=== PATIENT | male | born 1960 | race Caucasian/White ===

== ENCOUNTER 2016-08-04 15:40 | Inpatient (IN) ==
--- NOTE | 2016-08-04 15:51 | Emergency Department Note ---
Disposition Clinical Impression: Urinary tract infection, Acute retention of urine, Sepsis, Diabetes, Prostatic hypertrophy, Kidney stones, Obesity, Hypokalemia, History of recent surgery, Hepatic steatosis Disposition: Admitted As Inpatient Referrals: Daniel Mahoney DO [Primary Care Provider] - Forms: ED Satisfaction Letter General Adult HPI - General Chief complaint: ED Urogenital-Male Stated complaint: difficulty urinating Time Seen by Provider: 08/04/16 15:50 Source: patient Limitations: no limitations - History of Present Illness HPI Narrative: 56-year-old male with a history of prostatic hypertrophy reports to the emergency department complaining of difficulty voiding. He has suprapubic discomfort. The patient had to have a Bianchi catheter placed remotely for prostate related urinary obstruction, he states it stayed in place for 18 days. He states his symptoms are exactly the same as before. The patient has no known renal failure. He is diabetic. He is currently not anticoagulated. He does take medicines for prostatic hypertrophy, he has no history of malignancy. There is no history of vomiting or diarrhea. No scrotal or genital swelling reported. The patient reports he may have had a fever, he states he measured his temperature 99.7. About 3 weeks ago he had a cardiac ablation. He denies chest pain or shortness of breath. There is no history of difficulty moving the arms or legs, no weakness or numbness in the legs, no bowel problems, no back pain. He has no history of back surgery and does not describe acute back pain. There is no history of sciatica. No trauma. No other complaints or concerns. Pain Scale: 9 - Related Data Allergies Allergy/AdvReac Type Severity Reaction Status Date / Time No Known Allergies Allergy Verified 08/04/16 15:45 All systems ED: reviewed and negative except as stated. Past Medical History - Past Medical History Medical history: Reports: diabetes, hypertension, other Psychiatric history: Reports: no psych history - Social History Smoking Status: Never smoker Smokeless Tobacco Status: No Alcohol use: Reports: none Drug use: Reports: none Physical Exam - General Limitations: no limitations General appearance: alert, in no apparent distress - Head Head exam: atraumatic, normocephalic, normal inspection - Eye Eye exam: Present: normal appearance, PERRL, EOMI - ENT ENT exam: normal exam, normal oropharynx, mucous membranes moist, TM's normal bilaterally, normal external ear exam - Neck Neck exam: Present: normal inspection, full ROM, trachea midline - Chest Chest inspection: Present: symmetric chest wall rise. Absent: tenderness - Respiratory Respiratory exam: Present: normal lung sounds bilaterally. Absent: respiratory distress, accessory muscle use, prolonged expiratory phase - Cardiovascular Cardiovascular exam: Present: regular rate, normal rhythm, normal heart sounds - Abdominal Exam Abdominal exam: Present: soft, tenderness, normal bowel sounds. Absent: distention, guarding, rebound, rigidity, pulsatile mass Abdominal tenderness: Present: suprapubic, mild - Rectal Exam Equal Opportunity Officer present during exam: Yes - Male exam: Present: normal inspection (Bianchi catheter in place. There is no redness or swelling in the genital area or perennial area, no evidence of Yannick's gangrene.), normal testicular lie. Absent: paraphimosis, penile swelling, lesions, induration, erythema, perineal induration, priapism, ulcerations, inguinal hernia, inguinal lymphadenopathy, testicular tenderness - Extremities Exam Extremities exam: Present: normal inspection, full ROM, normal capillary refill. Absent: tenderness, pedal edema, joint swelling, calf tenderness - Expanded Lower Extremity Exam Lower leg exam: Absent: Homans' sign Neurovascular/Tendon exam: Present: normal capillary refill. Absent: motor deficit, sensory deficit, tendon deficit, extremity cold to touch, pallor - Back Exam Back exam: Present: normal inspection, full ROM. Absent: tenderness, CVA tenderness (R), CVA tenderness (L), vertebral tenderness, straight leg raise (R) , straight leg raise (L) - Neurological Exam Neurological exam: Present: alert, oriented X3, CN II-XII intact. Absent: motor sensory deficit - Psychiatric Psychiatric exam: Present: normal affect, normal mood - Skin Skin exam: Present: warm, dry, intact, normal color. Absent: rash, cyanosis, diaphoresis, erythema, pallor, mottled Course Vital Signs Temperature 98.6 F 08/04/16 15:42 Pulse Rate 100 08/04/16 15:42 Respiratory Rate 16 08/04/16 15:42 Blood Pressure 160/83 08/04/16 15:42 O2 Sat by Pulse Oximetry 97 08/04/16 15:42 Temperature 98.6 F 08/04/16 15:42 Pulse Rate 86 08/04/16 18:03 Respiratory Rate 16 08/04/16 18:03 Blood Pressure 118/60 08/04/16 18:03 O2 Sat by Pulse Oximetry 95 08/04/16 18:03 Oxygen Delivery Oxygen Delivery Room Air Medical Decision Making - MDM Narrative Medical decision making narrative: The patient has a significant urinary tract infection with acute urinary retention probably secondary to prostatomegaly. He has non obstructive kidney stones on CT scan. The patient's heart rate was in the 100 range on arrival, he has a white blood cell count of 21,000 and meets Sirs and sepsis criteria based on abnormal urinalysis. A Bianchi catheter was placed. The patient did obtain significant relief. The patient is currently taking antibiotics and appears to have failed outpatient therapy. He is elderly, diabetic, had recent surgery. Based on the patient's comorbidities including age, diabetes, acute retention kidney stones, and UTI with failed outpatient therapy, and meeting sepsis criteria, I thought it would be appropriate to admit the patient to the hospital. I discussed the case with the hospitalist APC on-call who has accepted the patient to their care. - Lab Data Lab results reviewed: Yes I reviewed the patient's lab results. Result diagrams: 08/04/16 16:30 08/04/16 16:30 Lab Results 08/04/16 08/04/16 08/04/16 Range/Units 16:30 16:30 16:50 WBC 21.0 H (4.3-11.1) K/mcL RBC 5.07 (4.19-5.50) M/mcL Hgb 13.8 (12.9-16.9) g/dL Hct 40.6 (37.5-50.1) % MCV 80.1 L (83.0-100.0) fL MCH 27.2 L (28.0-33.3) pg MCHC 34.0 (31.6-35.5) g/dL RDW 14.0 (11.5-14.5) % Plt Count 309 (140-400) K/mcL MPV 8.6 L (9.4-12.4) fL Immature Gran % 0.6 (0-4) % Seg Neutrophils % 87.0 % Lymphocytes % 2.6 % Monocytes % 9.5 % Eosinophils % 0.0 % Basophils % 0.3 % Neutrophils # 18.3 H (1.6-8.9) K/mcL Lymphocytes # 0.5 L (0.6-4.6) K/mcL Monocytes # 2.0 H (0.0-1.3) K/mcL Eosinophils # 0.0 (0.0-0.6) K/mcL Basophils # 0.1 (0.0-0.2) K/mcL Immature Plt Fraction 1.5 (1.1-6.1) % Sodium 133 L (136-145) mEq/L Potassium 3.3 L (3.5-4.5) mEq/L Chloride 94 L (98-109) mEq/L Carbon Dioxide 26 (19-29) mEq/L BUN 13 (8-26) mg/dL Creatinine 1.10 (0.72-1.25) mg/dL Est GFR ( Amer) > 60 (> 60) Est GFR (Non-Af Amer) > 60 (> 60) BUN/Creatinine Ratio 12 (6-26) Glucose 198 H (70-99) mg/dL Calculated Osmolality 282 (280-300) Lactic Acid (0.5-2.2) mmol/L Calcium 8.9 (8.6-10.8) mg/dL Total Bilirubin (0.2-1.2) mg/dL Direct Bilirubin (0.0-0.5) mg/dL Indirect Bilirubin (0.0-1.2) mg/dL AST (5-34) Units/L ALT (0-55) Units/L Alkaline Phosphatase (38-126) Units/L C-Reactive Protein 115 H (Less than 5) mg/L Serum Total Protein (6.0-8.3) g/dL Albumin (3.5-5.0) g/dL Globulin (2.4-3.5) g/dL Albumin/Globulin Ratio (1.1-2.2) Urine Color [place] A (Yellow) Urine Clarity Cloudy A (Clear) Urine pH 5.5 (5.0-8.0) pH Units Ur Specific [place] 1.021 (1.010-1.025) Urine Protein 100 H (Neg-Trace) mg/dL Urine Glucose (UA) Normal (Normal) mg/dL Urine Ketones Trace H (Negative) mg/dL Urine Blood Large H (Negative) Urine Nitrite Positive A (Negative) Urine Bilirubin Small H (Negative) Urine Urobilinogen Normal (Normal) mg/dL Ur Leukocyte Esterase Large H (Negative) Urine Microscopic RBC TNTC H (0-3) per hpf Urine Microscopic WBC TNTC H (0-3) per hpf Ur Squamous Epith Cells Many H (None-Few) per lpf Urine Bacteria None Seen (None-Few) per hpf Hyaline Casts None Seen (None-Few) per lpf Ur Culture Indicated? YES A (NO) 08/04/16 08/04/16 Range/Units 17:54 17:54 WBC (4.3-11.1) K/mcL RBC (4.19-5.50) M/mcL Hgb (12.9-16.9) g/dL Hct (37.5-50.1) % MCV (83.0-100.0) fL MCH (28.0-33.3) pg MCHC (31.6-35.5) g/dL RDW (11.5-14.5) % Plt Count (140-400) K/mcL MPV (9.4-12.4) fL Immature Gran % (0-4) % Seg Neutrophils % % Lymphocytes % % Monocytes % % Eosinophils % % Basophils % % Neutrophils # (1.6-8.9) K/mcL Lymphocytes # (0.6-4.6) K/mcL Monocytes # (0.0-1.3) K/mcL Eosinophils # (0.0-0.6) K/mcL Basophils # (0.0-0.2) K/mcL Immature Plt Fraction (1.1-6.1) % Sodium (136-145) mEq/L Potassium (3.5-4.5) mEq/L Chloride (98-109) mEq/L Carbon Dioxide (19-29) mEq/L BUN (8-26) mg/dL Creatinine (0.72-1.25) mg/dL Est GFR ( Amer) (> 60) Est GFR (Non-Af Amer) (> 60) BUN/Creatinine Ratio (6-26) Glucose (70-99) mg/dL Calculated Osmolality (280-300) Lactic Acid 1.6 (0.5-2.2) mmol/L Calcium (8.6-10.8) mg/dL Total Bilirubin 1.2 (0.2-1.2) mg/dL Direct Bilirubin 0.5 (0.0-0.5) mg/dL Indirect Bilirubin 0.7 (0.0-1.2) mg/dL AST 12 (5-34) Units/L ALT 20 (0-55) Units/L Alkaline Phosphatase 73 (38-126) Units/L C-Reactive Protein (Less than 5) mg/L Serum Total Protein 7.7 (6.0-8.3) g/dL Albumin 3.4 L (3.5-5.0) g/dL Globulin 4.3 H (2.4-3.5) g/dL Albumin/Globulin Ratio 0.8 L (1.1-2.2) Urine Color (Yellow) Urine Clarity (Clear) Urine pH (5.0-8.0) pH Units Ur Specific [place] (1.010-1.025) Urine Protein (Neg-Trace) mg/dL Urine Glucose (UA) (Normal) mg/dL Urine Ketones (Negative) mg/dL Urine Blood (Negative) Urine Nitrite (Negative) Urine Bilirubin (Negative) Urine Urobilinogen (Normal) mg/dL Ur Leukocyte Esterase (Negative) Urine Microscopic RBC (0-3) per hpf Urine Microscopic WBC (0-3) per hpf Ur Squamous Epith Cells (None-Few) per lpf Urine Bacteria (None-Few) per hpf Hyaline Casts (None-Few) per lpf Ur Culture Indicated? (NO) - Radiology Data Radiology results reviewed: Yes I reviewed the patient's radiology results.
[2016-08-04 16:40] LABS: Basophils # 0.1 K/mcL (0.0-0.2); Basophils % 0.3 %; Hematocrit 40.6 % (37.5-50.1); Hemoglobin 13.8 g/dL (12.9-16.9); Immature Granulocytes % 0.6 % (0-4); Immature Platelets 1.5 % (1.1-6.1); Lymphocytes # 0.5 K/mcL (0.6-4.6); Lymphocytes % 2.6 %; Mean Corpuscular Hemoglobin 27.2 pg (28.0-33.3); Mean Corpuscular Volume 80.1 fL (83.0-100.0); Mean Platelet Volume 8.6 fL (9.4-12.4); Monocytes % 9.5 %; Neutrophils # 18.3 K/mcL (1.6-8.9); Platelet Count 309 K/mcL (140-400); Red Blood Count 5.07 M/mcL (4.19-5.50)
[2016-08-04 16:52] LABS: BUN/Creatinine Ratio 12 (6-26); Blood Urea Nitrogen 13 mg/dL (8-26); C-Reactive Protein 115 mg/L (Less than 5); Calcium 8.9 mg/dL (8.6-10.8); Carbon Dioxide 26 mEq/L (19-29); Chloride 94 mEq/L (98-109); Glucose 198 mg/dL (70-99); Osmolality,Calculated 282 (280-300); Potassium 3.3 mEq/L (3.5-4.5); Sodium 133 mEq/L (136-145); eGFR For African Americans > 60 (> 60); eGFR For Non-African Americans > 60 (> 60)
[2016-08-04] MEDS ORDERED: 0.9 % Sodium Chloride 1,000 ML IVC ONE ×2 (17:04→18:02)
[2016-08-04 17:08] LABS: Bilirubin,Urine Small (Negative); Blood,Urine Large (Negative); Clarity,Urine Cloudy (Clear); Color,Urine Orange (Yellow); Glucose,Urine (UA) Normal (Normal); Ketones,Urine Trace mg/dL (Negative); Leukocyte Esterase,Urine Large (Negative); Nitrite,Urine Positive (Negative); PH,Urine 5.5 pH Units (5.0-8.0); Protein,Urine 100 mg/dL (Neg-Trace); Specific Gravity,Urine 1.021 (1.010-1.025); Urobilinogen,Urine Normal (Normal)
[2016-08-04 17:10] LABS: Bacteria,Urine None Seen per hpf (None-Few); Hyaline Casts,Urine None Seen per lpf (None-Few); RBC,Urine TNTC per hpf (0-3); Squamous Epithelial Cell,Urine Many per lpf (None-Few); WBC,Urine TNTC per hpf (0-3)
[2016-08-04 18:15] LABS: Albumin 3.4 g/dL (3.5-5.0); Albumin/Globulin Ratio 0.8 (1.1-2.2); Bilirubin,Direct 0.5 mg/dL (0.0-0.5); Bilirubin,Indirect 0.7 mg/dL (0.0-1.2); Bilirubin,Total 1.2 mg/dL (0.2-1.2); Globulin 4.3 g/dL (2.4-3.5); Total Protein 7.7 g/dL (6.0-8.3)
[2016-08-04] MEDS ORDERED: *HR* OxyCODONE/APAP 5/325 TABLET PO ONE (19:08)
--- NOTE | 2016-08-04 21:21 | Internal Med History&Physical ---
<Pako Owusujared Verma - Last Filed: 08/04/16 21:58> Date of Encounter: 08/04/16 Time of Encounter: 21:19 Assessment and Plan (1) Sepsis Current visit: Yes Status: Acute with tachycardia, WBC 21K. Secondary to UTI. Lactic acid normal. HR improved with IV fluids in the ED. Hemodynamically stable; does not appear acute or toxic. Cont iV fluids, increase Rocephin to 2 gm daily. Blood and urine cultures pending. Qualifiers: Qualified Code(s): A41.9 - Sepsis, unspecified organism (2) Urinary tract infection Current visit: Yes Status: Acute UA with large leuk esterase, pyuira and nitrites. Recently failed outpatient ATB (bactrim). Suspect secondary to urinary retention. Cont IV rocephin for now. Follow urine. Narrow ATB as culture finalizes Qualifiers: Qualified Code(s): N39.0 - Urinary tract infection, site not specified (3) BPH (benign prostatic hyperplasia) Current visit: Yes Status: Acute per hx. Presented with inability to void and urinary retention. Quiros placed in ED with >1L removed. ABT CT with moderate prostatomegaly and bilateral non- obstructing renal calculi. Cont home tamulosin and finasteride. Once sepsis resolved attempt voiding trial; if he retains then consult Urology. Otherwise will need outpatient Urology follow-up Qualifiers: Qualified Code(s): N40.0 - Benign prostatic hyperplasia without lower urinary tract symptoms (4) Hypertension Current visit: Yes Status: Acute per hx. BP controlled in ED. Resume BP medications. Monitor BP and titrate PRN Qualifiers: Qualified Code(s): I10 - Essential (primary) hypertension (5) Atrial fibrillation Current visit: Yes Status: Acute per hx with recent RFA. EKG with ST on arrival. HR improved with IV fluids. Cont home BB, eliquis Qualifiers: Qualified Code(s): I48.0 - Paroxysmal atrial fibrillation (6) Diabetes Current visit: Yes Status: Acute per hx. Control unknown. Hold home oral hypoglycemics. SSI while inpatient. 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 Travis is a 56 year old male HTN, DM, BPH and a-fib on eliquis who presented to [facility] on 08/04/2016 [facility] complaints of difficulty voiding and dysuria. He was found to be in sepsis and was admitted for IV ATB. Information obtained from chart review and patient report. Patient says he went to Urgent care yesterday and was give ATB for UTI. Says urinary stream became weaker and weaker until he was not able to void. Says he has been taking BPH medications as prescribed. No CP, no SOB, no ABD pain, no N/V/D Past Med Surg Social Fam HX - Past Medical History Medical history: diabetes, hypertension, other Psychiatric history: no psych history - Past Surgical History Surgical History: non-contributory - Social History Smoking Status: Never smoker Smokeless Tobacco Status: No Alcohol use: none Drug use: none - Family History Sister Living Status: Cause of : sepsis Internal Medicine - H&P: Meds Alpha Lipoic Acid 300 mg PO DAILY 08/04/16 [History] Amlodipine [Norvasc] 5 mg PO DAILY 08/04/16 [History] Apixaban [Eliquis] 5 mg PO BID 08/04/16 [History] Ascorbate Calcium [Vitamin C] 500 mg PO DAILY 08/04/16 [History] Cinnamon Bark [Cinnamon] 2,000 mg PO BID 08/04/16 [History] Finasteride [Proscar] 5 mg PO QPM 08/04/16 [History] Fluticasone Propionate Nasal [Flonase] 50 mcg NS HS 08/04/16 [History] Ginkgo Biloba 120 mg PO DAILY 08/04/16 [History] Hydrochlorothiazide 25 mg PO DAILY 08/04/16 [History] L. Acidophilus/Pectin, [place] [Acidophilus Probiotic Capsule] 1 each PO QAM [History] Loratadine [Claritin] 10 mg PO QAM 08/04/16 [History] Losartan Potassium [Cozaar] 100 mg PO DAILY 08/04/16 [History] Metformin HCl [Glucophage] 1,000 mg PO BID 08/04/16 [History] Metoprolol [Lopressor] 25 mg PO BID 08/04/16 [History] Montelukast [Singulair] 10 mg PO HS 08/04/16 [History] [place]-3/Dha/Epa/Fish Oil [Fish Oil 1,000 mg Softgel] 1,000 mg PO BID 08/04/16 [ History] SitaGLIPtin [Januvia] 100 mg PO DAILY 08/04/16 [History] Tamsulosin [Flomax] 0.4 mg PO QPM 08/04/16 [History] Ubidecarenone [Co Q-10] 100 mg PO DAILY 08/04/16 [History] Allergies Banana Adverse Reaction (Verified 08/04/16 20:14) See Comments eyes and nose swell, itchy mouth. All Systems PM: A 10-system review of systems was performed and is negative for pertinent findings except as documented above in the HPI. - Constitutional Constitutional: no chills, no fever(s), no night sweats - EENT Eyes: no change in vision, no discharge, no pain, no photophobia Ears: no ear discharge, no ear pain, no tinnitus Nose, mouth and throat: no dysphagia, no nasal discharge, no neck pain, no sore throat - Cardiovascular Cardiovascular ROS IM: no chest pain, no diaphoresis, no dyspnea, no lightheadedness, no palpitations, no syncope - Respiratory Respiratory: no cough, no dyspnea, no wheezing, no excessive phlegm production - Gastrointestinal Gastrointestinal: no abdominal pain, no diarrhea, no hematemesis, no hematochezia, no melena, no nausea, no vomiting - Genitourinary Genitourinary ROS male: difficulty urinating, dysuria - Musculoskeletal Musculoskeletal ROS IM: no numbness, no tingling - Integumentary Integumentary IM: no rash, no unusual bruising - Neurological Neurological ROS: no confusion, no convulsions, no focal weakness, no numbness, no tingling, no tremor(s) - Hematologic/Lymphatic Hematologic/Lymphatic: no easy bruising - Constitutional Vitals: Temp Pulse Resp BP Pulse Ox 98.6 F 100 16 119/68 99 08/04/16 15:42 08/04/16 20:37 08/04/16 20:37 08/04/16 20:37 08/04/16 20:37 - Head Head exam: Present: atraumatic, normocephalic - Eye Eye exam: Present: PERRL, conjuntiva pink, sclera anicteric Pupils: Present: PERRL - Neck Neck exam general surgery: Present: supple, trachea midline. Absent: lymphadenopathy - Respiratory Respiratory exam: Present: CTAB. Absent: accessory muscle use, rales, rhonchi, wheezes - Cardiovascular Cardiovascular exam: Present: RRR, +S1, +S2. Absent: diastolic murmur, gallop, rubs, systolic murmur - GI/Abdominal GI/Abdominal exam: Present: normal bowel sounds, soft, no peritoneal signs. Absent: distended, tenderness Additional comments: obese - Additional comments: + quiros with dark yellow urine - Extremities Exam Extremities exam: Present: warm, radial pulses palpable and symetrical. Absent : calf tenderness, cyanotic, pedal edema - Neurological Exam Neurological exam: Present: CN II-XII intact, oriented X3, no focal deficits. Absent: pronater drift, facial droop, speech deficit - Skin Skin exam: Present: dry, intact Internal Med - H&P Results - Labs CBC & Chem 7: 08/04/16 16:30 08/04/16 16:30 Labs: Short CBC 08/04/16 Range/Units 16:30 WBC 21.0 H (4.3-11.1) K/mcL Hgb 13.8 (12.9-16.9) g/dL Hct 40.6 (37.5-50.1) % Plt Count 309 (140-400) K/mcL Neutrophils # 18.3 H (1.6-8.9) K/mcL BMP 08/04/16 16:30 Sodium 133 L Potassium 3.3 L Chloride 94 L Carbon Dioxide 26 BUN 13 Creatinine 1.10 Glucose 198 H Calcium 8.9 Liver Function 08/04/16 Range/Units 17:54 Total Bilirubin 1.2 (0.2-1.2) mg/dL Direct Bilirubin 0.5 (0.0-0.5) mg/dL AST 12 (5-34) Units/L ALT 20 (0-55) Units/L Alkaline Phosphatase 73 (38-126) Units/L Albumin 3.4 L (3.5-5.0) g/dL Urine 08/04/16 Range/Units 16:50 Urine Color [place] A (Yellow) Urine Clarity Cloudy A (Clear) Urine pH 5.5 (5.0-8.0) pH Units Ur Specific [place] 1.021 (1.010-1.025) Urine Protein 100 H (Neg-Trace) mg/dL Urine Glucose (UA) Normal (Normal) mg/dL - Impressions ITS Impressions Chest X-Ray 08/04/16 17:02 IMPRESSION: The heart, mediastinum and pulmonary vascularity are normal. Lungs are well-expanded and clear. No skeletal abnormalities are present in the chest. FINDINGS: No significant findings in the chest. D/ / Gideon Lee MD / Gideon Lee MD Interpreting Provider: Gideon Lee MD Abdomen/Pelvis CT 08/04/16 17:04 IMPRESSION: Despite urinary bladder decompression via the Quirso catheter, urinary bladder wall thickening is suspected with mild perivesical fat stranding. Findings may be related to infection and/or hypertrophy from outlet obstruction. Moderate prostatomegaly. Bilateral nonobstructing small renal calculi. Diffuse fatty infiltration of the liver. D/ / Jerardo Davison MD / Jerardo Davison MD Interpreting Provider: Jerardo Davison MD <Rosales De La Cruz - Last Filed: 08/04/16 22:26> Date of Encounter: 08/04/16 Internal Medicine - H&P: HPI History of present illness: Mr. Travis is a 56 year old male Past Med Surg Social Fam HX - Past Surgical History Surgical History: other (surgery for renal stones) All Systems PM: A 10-system review of systems was performed and is negative for pertinent findings except as documented above in the HPI. - Constitutional Vitals: Temp Pulse Resp BP Pulse Ox 98.6 F 100 18 125/69 99 08/04/16 15:42 08/04/16 20:37 08/04/16 21:15 08/04/16 21:15 08/04/16 20:37 Internal Med - H&P Results - Labs CBC & Chem 7: 08/04/16 16:30 08/04/16 16:30 - Diagnostic Studies Chest x-ray Status: image reviewed by me CT scan - abdomen Status: image reviewed by me - Attending Attestation I personally interviewed and examined this patient and my medical decision- making was reviewed with the Advanced Practice Nurse. I agree with the documented findings, disposition and treatment plan as described. Patient with a history of BPH on medications and a prior acute urinary retention about 3 years ago comes in with a second episode associated with sepsis following a UTI. He was seen last night by an AUDIT INTERN and started on Bactrim for UTI based on his symptoms but his symptoms worsened overnight so he came in to the ER today. He was lost to urology followup after his first episode. He has been advised to followup with urology for both his BPH and renal stones-had prior surgery for renal stones-upon discharge. Anticipate 48 hours LOS.
[2016-08-04] MEDS ORDERED: *HR* Dextrose 50 % in Water (Syg) 50 ML SYRINGE IVP PRN (21:27)
[2016-08-04] MEDS ORDERED: Dextrose Gel 15 GM PO PRN ×2 (21:27)
[2016-08-04] MEDS ORDERED: D5% in Water 1,000 ML IVC PRN (21:27)
[2016-08-04] MEDS: 0.9 % Sodium Chloride 1,000 ML IVC SCH (23:12)
[2016-08-04] MEDS: Finasteride 5 MG TABLET PO SCH (23:57)
[2016-08-04] MEDS: APIXABAN 5 MG TABLET PO SCH (23:58)
[2016-08-05] MEDS ORDERED: Ondansetron 4 MG/2 ML VIAL IVP PRN (03:58)
[2016-08-05 04:09] LABS: Basophils % 0.2 %; Hematocrit 35.5 % (37.5-50.1); Immature Granulocytes % 1.4 % (0-4); Immature Platelets 1.7 % (1.1-6.1); Lymphocytes # 1.1 K/mcL (0.6-4.6); Lymphocytes % 4.9 %; Mean Corpuscular HGB Conc 34.1 g/dL (31.6-35.5); Mean Corpuscular Hemoglobin 27.4 pg (28.0-33.3); Mean Corpuscular Volume 80.5 fL (83.0-100.0); Mean Platelet Volume 9.3 fL (9.4-12.4); Monocytes # 2.2 K/mcL (0.0-1.3); Monocytes % 9.8 %; Neutrophils # 18.4 K/mcL (1.6-8.9); Platelet Count 288 K/mcL (140-400); Red Blood Count 4.41 M/mcL (4.19-5.50); Red Cell Distribution Width 14.2 % (11.5-14.5); Segmented Neutrophils % 83.7 %
[2016-08-05 04:16] LABS: Hemoglobin 12.1 g/dL (12.9-16.9)
[2016-08-05 04:29] LABS: Alanine Aminotransferase 16 Units/L (0-55); Albumin 2.9 g/dL (3.5-5.0); Albumin/Globulin Ratio 0.7 (1.1-2.2); Alkaline Phosphatase 77 Units/L (38-126); Aspartate Amino Transferase 9 Units/L (5-34); BUN/Creatinine Ratio 11 (6-26); Bilirubin,Total 0.9 mg/dL (0.2-1.2); Blood Urea Nitrogen 11 mg/dL (8-26); Calcium 8.6 mg/dL (8.6-10.8); Carbon Dioxide 29 mEq/L (19-29); Chloride 97 mEq/L (98-109); Globulin 4.1 g/dL (2.4-3.5); Glucose 182 mg/dL (70-99); Osmolality,Calculated 280 (280-300); Potassium 3.2 mEq/L (3.5-4.5); Sodium 133 mEq/L (136-145); eGFR For African Americans > 60 (> 60); eGFR For Non-African Americans > 60 (> 60)
[2016-08-05] MEDS: Insulin LISPRO 300 UNITS/3 ML VIAL SQ SCH ×4 (08:02→20:34)
[2016-08-05] MEDS: hydroCHLOROthiazide 25 MG TABLET PO SCH (08:03)
[2016-08-05] MEDS: APIXABAN 5 MG TABLET PO SCH ×2 (08:03→20:34)
[2016-08-05] MEDS: amLODIPine 5 MG TABLET PO SCH (08:04)
[2016-08-05] MEDS ORDERED: APIXABAN 5 MG TABLET PO SCH (09:00)
--- NOTE | 2016-08-05 10:31 | Internal Med Progress Note ---
Date of Encounter: 08/05/16 Time of Encounter: 10:28 - Assessment and plan (1) Urinary tract infection Current Visit: Yes Status: Acute Assessment and plan: started on rocephin cultures pending Qualifiers: Urinary tract infection type: acute cystitis Hematuria presence: without hematuria Qualified Code(s): N30.00 - Acute cystitis without hematuria (2) Sepsis Current Visit: Yes Status: Acute Assessment and plan: sepsis from uti cultures pending results Qualifiers: Sepsis type: sepsis due to unspecified organism Qualified Code(s): A41.9 - Sepsis, unspecified organism (3) Diabetes Current Visit: Yes Status: Chronic Assessment and plan: on sliding scale and home meds Qualifiers: Diabetes mellitus type: type 2 Diabetes mellitus complication status: with unspecified complications 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 insulin use: unspecified senior living insulin use status Qualified Code(s): E11.8 - Type 2 diabetes mellitus with unspecified complications (4) Prostatic hypertrophy Current Visit: Yes Status: Chronic Assessment and plan: complicated bph with urinary retension and uti (5) Obesity Current Visit: Yes Status: Chronic Assessment and plan: chronic Qualifiers: Obesity type: due to excess calories Obesity severity: morbid Qualified Code(s): E66.01 - Morbid (severe) obesity due to excess calories (6) BPH (benign prostatic hyperplasia) Current Visit: Yes Status: Acute Assessment and plan: urology consulted Qualifiers: Prostatic enlargement morphology: unspecified morphology Lower urinary tract symptom presence: presence of symptoms unspecified Qualified Code(s): N40.0 - Benign prostatic hyperplasia without lower urinary tract symptoms - Subjective Interval history: Patient with history of morbid obesity, hypertension, diabetes, atrial fibrillation underwent ablation about 3 weeks ago now in sinus rhythm patient was admitted due to difficulty voiding and dysuria found to have UTI and sepsis . white count was at 21,000 with tachycardia he is on IV Rocephin Today denies any fevers or chills consult urology for urinary retention also beeing a male with complicated UTI . apparently he has history of BPH - Constitutional Vitals: Temp Pulse Resp BP Pulse Ox 98.8 F 67 20 113/72 95 08/05/16 07:17 08/05/16 07:17 08/05/16 07:17 08/05/16 07:17 08/05/16 07:17 - Head Head exam: Present: atraumatic, normocephalic - Eye Eye exam: Present: PERRL, conjuntiva pink, sclera anicteric Pupils: Present: PERRL - Neck Neck exam general surgery: Present: supple, trachea midline. Absent: lymphadenopathy - Respiratory Respiratory exam: Present: CTAB. Absent: accessory muscle use, rales, rhonchi, wheezes - Cardiovascular Cardiovascular exam: Present: RRR, +S1, +S2. Absent: diastolic murmur, gallop, rubs, systolic murmur - GI/Abdominal GI/Abdominal exam: Present: normal bowel sounds, soft, no peritoneal signs. Absent: distended, tenderness - Extremities Exam Extremities exam: Present: warm, radial pulses palpable and symetrical. Absent : calf tenderness, cyanotic, pedal edema Internal Medicine: Result - Labs CBC & Chem 7: 08/05/16 03:35 08/05/16 03:35 Labs: Short CBC 08/05/16 Range/Units 03:35 WBC 22.0 H (4.3-11.1) K/mcL Hgb 12.1 L D (12.9-16.9) g/dL Hct 35.5 L (37.5-50.1) % Plt Count 288 (140-400) K/mcL Neutrophils # 18.4 H (1.6-8.9) K/mcL BMP 08/05/16 03:35 Sodium 133 L Potassium 3.2 L Chloride 97 L Carbon Dioxide 29 BUN 11 Creatinine 0.96 Glucose 182 H Calcium 8.6 Liver Function 08/05/16 Range/Units 03:35 Total Bilirubin 0.9 (0.2-1.2) mg/dL AST 9 (5-34) Units/L ALT 16 (0-55) Units/L Alkaline Phosphatase 77 (38-126) Units/L Albumin 2.9 L (3.5-5.0) g/dL Consult Discharge Plan - Plan Referrals: Daniel Mahoney DO [Primary Care Provider] -
[2016-08-05] MEDS: 0.9 % Sodium Chloride 1,000 ML IVC SCH (12:01)
--- NOTE | 2016-08-05 12:09 | Urology - Consult Note ---
Date of Encounter: 08/05/16 Time of Encounter: 12:07 - Assessment and Plan (1) Acute retention of urine Current Visit: Yes Status: Acute Assessment and plan: 56-year-old man with a history of acute urinary retention and a urinary tract infection. Please continue the Bianchi catheter for 1 week. We can consider a voiding trial in one week. He is currently taking combination therapy with both finasteride and tamsulosin. With this urinary tract infection and 2 episodes of retention, this typically indicates need for bladder outlet surgery such as a TURP. I discussed surgical treatment. This is not an emergency at this time, but he may want to consider definitive surgery for his BPH to minimize his risk of infection in the future. (2) Urinary tract infection Current Visit: Yes Status: Acute Assessment and plan: We will await the results of his urine and blood cultures. Continue Rocephin. Qualifiers: Urinary tract infection type: acute cystitis Hematuria presence: without hematuria Qualified Code(s): N30.00 - Acute cystitis without hematuria (3) Prostatic hypertrophy Current Visit: Yes Status: Chronic Assessment and plan: Continue finasteride and tamsulosin. Urology CN:HPI Consult date: 08/05/16 Reason for consult Urology: Other (uti and urinary retention) History of present illness: 56-year-old man presents with concern for a urinary tract infection and urinary retention. He had some dysuria and was seen at a local urgent care. He was started on antibiotic. A day later he began to have more difficulty with voiding. He came to the emergency department. They placed a catheter. They noted he had a leukocytosis. He was admitted for a urinary tract infection. He reports a history of nephrolithiasis. A CT scan was performed which showed bilateral stones, but no evidence of obstruction. He reports having a history of urinary retention. He does take finasteride and tamsulosin. Past Med Surg Social Fam HX - Past Medical History Medical history: diabetes, hypertension, other Psychiatric history: no psych history - Past Surgical History Surgical History: appendectomy, other - Social History Smoking Status: Never smoker Smokeless Tobacco Status: No Alcohol use: none Drug use: none - Family History Sister Living Status: Cause of : sepsis Mother Living Status: Still Living Hx Family Cardiac Disorders: Yes (Afib, mitral valve prolapse) Hx Family Respiratory Disorders: Yes (COPD, Emphysema) Hx Family Cancer: Yes (Breast Cancer) Hx Family GI Disorders: No Hx Family Genitourinary Disorders: (Bladder repair) Hx Family Endocrine Disorder: Yes (DM) Hx Family Musculoskeletal Disorders: No Hx Family Neuromuscular Disorders: No Hx Family Neurologic Disorders: No Hx Family HEENT Disorders: No Hx Family Autoimmune Disorders: No Hx Family Reproductive Disorders: No Hx Family Psychosocial Disorders: Yes (Depression) Hx Family Medical Disorders: No Medications and Allergies Alpha Lipoic Acid 300 mg PO DAILY 08/04/16 [History] Amlodipine [Norvasc] 5 mg PO DAILY 08/04/16 [History] Apixaban [Eliquis] 5 mg PO BID 08/04/16 [History] Ascorbate Calcium [Vitamin C] 500 mg PO DAILY 08/04/16 [History] Cinnamon Bark [Cinnamon] 2,000 mg PO BID 08/04/16 [History] Finasteride [Proscar] 5 mg PO QPM 08/04/16 [History] Fluticasone Propionate Nasal [Flonase] 50 mcg NS HS 08/04/16 [History] Ginkgo Biloba 120 mg PO DAILY 08/04/16 [History] Hydrochlorothiazide 25 mg PO DAILY 08/04/16 [History] L. Acidophilus/Pectin, [place] [Acidophilus Probiotic Capsule] 1 each PO QAM [History] Loratadine [Claritin] 10 mg PO QAM 08/04/16 [History] Losartan Potassium [Cozaar] 100 mg PO DAILY 08/04/16 [History] Metformin HCl [Glucophage] 1,000 mg PO BID 08/04/16 [History] Metoprolol [Lopressor] 25 mg PO BID 08/04/16 [History] Montelukast [Singulair] 10 mg PO HS 08/04/16 [History] [place]-3/Dha/Epa/Fish Oil [Fish Oil 1,000 mg Softgel] 1,000 mg PO BID 08/04/16 [ History] SitaGLIPtin [Januvia] 100 mg PO DAILY 08/04/16 [History] Tamsulosin [Flomax] 0.4 mg PO QPM 08/04/16 [History] Ubidecarenone [Co Q-10] 100 mg PO DAILY 08/04/16 [History] Allergies Banana Adverse Reaction (Verified 08/04/16 20:14) See Comments eyes and nose swell, itchy mouth. Review of Systems - Constitutional no chills, no fever(s) - EENT Nose, mouth and throat: no dizziness - Cardiovascular no chest pain - Respiratory no dyspnea - Gastrointestinal no nausea, no vomiting - Genitourinary difficulty urinating, dysuria, no flank pain, no hematuria - Musculoskeletal no back pain - Integumentary no erythema, no rash - Neurological no weakness - Psychiatric no suicidal ideation - Hematologic/Lymphatic no easy bleeding - Allergic/Immunologic no wheezing Exam Initial Vital Signs Temp Pulse Resp BP Pulse Ox 98.6 F 100 16 160/83 97 08/04/16 15:42 08/04/16 15:42 08/04/16 15:42 08/04/16 15:42 08/04/16 15:42 - General physical appearance Present: well developed, well nourished, no distress - Eyes Absent: icteric - ENT Present: normal nares - Neck Present: trachea midline - Respiratory Present: normal respiratory effort - Cardiovascular Cardiovascular exam IM: RRR - Abdomen Abdomen: Present: soft - Genitourinary normal penis with no external lesions, other (Catheter in place with some blood around the catheter.) Urology Results - Labs 08/05/16 03:35 08/05/16 03:35 Abnormal lab results WBC 22.0 K/mcL (4.3-11.1) H 08/05/16 03:35 Hgb 12.1 g/dL (12.9-16.9) L D 08/05/16 03:35 Hct 35.5 % (37.5-50.1) L 08/05/16 03:35 MCV 80.5 fL (83.0-100.0) L 08/05/16 03:35 MCH 27.4 pg (28.0-33.3) L 08/05/16 03:35 MPV 9.3 fL (9.4-12.4) L 08/05/16 03:35 Neutrophils # 18.4 K/mcL (1.6-8.9) H 08/05/16 03:35 Monocytes # 2.2 K/mcL (0.0-1.3) H 08/05/16 03:35 Sodium 133 mEq/L (136-145) L 08/05/16 03:35 Potassium 3.2 mEq/L (3.5-4.5) L 08/05/16 03:35 Chloride 97 mEq/L (98-109) L 08/05/16 03:35 Glucose 182 mg/dL (70-99) H 08/05/16 03:35 POC Glucose 201 (58-89) H 08/05/16 00:08 C-Reactive Protein 115 mg/L (Less than 5) H 08/04/16 16:30 Albumin 2.9 g/dL (3.5-5.0) L 08/05/16 03:35 Globulin 4.1 g/dL (2.4-3.5) H 08/05/16 03:35 Albumin/Globulin Ratio 0.7 (1.1-2.2) L 08/05/16 03:35 Urine Color [place] (Yellow) A 08/04/16 16:50 Urine Clarity Cloudy (Clear) A 08/04/16 16:50 Urine Protein 100 mg/dL (Neg-Trace) H 08/04/16 16:50 Urine Ketones Trace mg/dL (Negative) H 08/04/16 16:50 Urine Blood Large (Negative) H 08/04/16 16:50 Urine Nitrite Positive (Negative) A 08/04/16 16:50 Urine Bilirubin Small (Negative) H 08/04/16 16:50 Ur Leukocyte Esterase Large (Negative) H 08/04/16 16:50 Urine Microscopic RBC TNTC per hpf (0-3) H 08/04/16 16:50 Urine Microscopic WBC TNTC per hpf (0-3) H 08/04/16 16:50 Ur Squamous Epith Cells Many per lpf (None-Few) H 08/04/16 16:50 Ur Culture Indicated? YES (NO) A 08/04/16 16:50 Diabetes panel 08/05/16 Range/Units 03:35 Sodium 133 L (136-145) mEq/L Potassium 3.2 L (3.5-4.5) mEq/L Chloride 97 L (98-109) mEq/L Carbon Dioxide 29 (19-29) mEq/L BUN 11 (8-26) mg/dL Creatinine 0.96 (0.72-1.25) mg/dL Glucose 182 H (70-99) mg/dL Calcium 8.6 (8.6-10.8) mg/dL AST 9 (5-34) Units/L ALT 16 (0-55) Units/L Alkaline Phosphatase 77 (38-126) Units/L Albumin 2.9 L (3.5-5.0) g/dL Calcium panel 08/05/16 Range/Units 03:35 Calcium 8.6 (8.6-10.8) mg/dL Albumin 2.9 L (3.5-5.0) g/dL Pituitary panel 08/05/16 Range/Units 03:35 Sodium 133 L (136-145) mEq/L Potassium 3.2 L (3.5-4.5) mEq/L Chloride 97 L (98-109) mEq/L Carbon Dioxide 29 (19-29) mEq/L BUN 11 (8-26) mg/dL Creatinine 0.96 (0.72-1.25) mg/dL Glucose 182 H (70-99) mg/dL Calcium 8.6 (8.6-10.8) mg/dL Adrenal panel 08/05/16 Range/Units 03:35 Sodium 133 L (136-145) mEq/L Potassium 3.2 L (3.5-4.5) mEq/L Chloride 97 L (98-109) mEq/L Carbon Dioxide 29 (19-29) mEq/L BUN 11 (8-26) mg/dL Creatinine 0.96 (0.72-1.25) mg/dL Glucose 182 H (70-99) mg/dL Calcium 8.6 (8.6-10.8) mg/dL Total Bilirubin 0.9 (0.2-1.2) mg/dL AST 9 (5-34) Units/L ALT 16 (0-55) Units/L Alkaline Phosphatase 77 (38-126) Units/L Albumin 2.9 L (3.5-5.0) g/dL All other labs normal. - Imaging CT scan - abdomen: report reviewed, image reviewed CT scan - pelvis: report reviewed, image reviewed Consult Discharge Plan - Plan Referrals: Daniel Mahoney DO [Primary Care Provider] -
[2016-08-05 12:19] LABS: Bilirubin,Urine Negative (Negative); Blood,Urine Large (Negative); Clarity,Urine Clear (Clear); Color,Urine Yellow (Yellow); Glucose,Urine (UA) Normal (Normal); Ketones,Urine Negative (Negative); Leukocyte Esterase,Urine Trace (Negative); Nitrite,Urine Negative (Negative); PH,Urine 6.5 pH Units (5.0-8.0); Protein,Urine Trace mg/dL (Neg-Trace); Specific Gravity,Urine 1.014 (1.010-1.025); Urobilinogen,Urine Normal (Normal)
[2016-08-05 12:20] LABS: Bacteria,Urine None Seen per hpf (None-Few); Hyaline Casts,Urine None Seen per lpf (None-Few); RBC,Urine TNTC per hpf (0-3); Squamous Epithelial Cell,Urine Many per lpf (None-Few)
[2016-08-05] MEDS: *HR* HYDROcodone/Acet 5/325 mg TABLET PO PRN (12:58)
[2016-08-05] MEDS: Finasteride 5 MG TABLET PO SCH (17:36)
[2016-08-05] MEDS ORDERED: Finasteride 5 MG TABLET PO SCH (18:00)
[2016-08-06] MEDS: 0.9 % Sodium Chloride 1,000 ML IVC SCH ×2 (01:13→14:10)
[2016-08-06 02:51] LABS: Hematocrit 35.5 % (37.5-50.1); Hemoglobin 11.7 g/dL (12.9-16.9); Mean Platelet Volume 8.8 fL (9.4-12.4); Platelet Count 252 K/mcL (140-400); Red Blood Count 4.33 M/mcL (4.19-5.50); Red Cell Distribution Width 14.3 % (11.5-14.5)
[2016-08-06 03:08] LABS: BUN/Creatinine Ratio 14 (6-26); Blood Urea Nitrogen 12 mg/dL (8-26); Calcium 8.5 mg/dL (8.6-10.8); Carbon Dioxide 27 mEq/L (19-29); Chloride 100 mEq/L (98-109); Glucose 147 mg/dL (70-99); Osmolality,Calculated 284 (280-300); Potassium 3.6 mEq/L (3.5-4.5); Sodium 136 mEq/L (136-145); eGFR For African Americans > 60 (> 60); eGFR For Non-African Americans > 60 (> 60)
[2016-08-06] MEDS: Insulin LISPRO 300 UNITS/3 ML VIAL SQ SCH ×4 (07:54→21:16)
[2016-08-06] MEDS: APIXABAN 5 MG TABLET PO SCH ×2 (07:55→20:46)
[2016-08-06] MEDS: hydroCHLOROthiazide 25 MG TABLET PO SCH (07:55)
[2016-08-06] MEDS: amLODIPine 5 MG TABLET PO SCH (07:56)
[2016-08-06] MEDS: *HR* HYDROcodone/Acet 5/325 mg TABLET PO PRN (09:00)
--- NOTE | 2016-08-06 14:33 | Internal Med Progress Note ---
Date of Encounter: 08/06/16 Time of Encounter: 14:31 - Assessment and plan (1) Urinary tract infection Current Visit: Yes Status: Acute Assessment and plan: clinically much better culture growing e coli Qualifiers: Urinary tract infection type: acute cystitis Hematuria presence: without hematuria Qualified Code(s): N30.00 - Acute cystitis without hematuria (2) Sepsis Current Visit: Yes Status: Acute Assessment and plan: blood cultures negative Qualifiers: Sepsis type: sepsis due to unspecified organism Qualified Code(s): A41.9 - Sepsis, unspecified organism (3) Diabetes Current Visit: Yes Status: Chronic Assessment and plan: chronic continue sliding scale Qualifiers: Diabetes mellitus type: type 2 Diabetes mellitus complication status: with unspecified complications 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 use: unspecified mcfp insulin use status Qualified Code(s): E11.8 - Type 2 diabetes mellitus with unspecified complications (4) Prostatic hypertrophy Current Visit: Yes Status: Chronic Assessment and plan: need TURP he is agreableto proceed after acute infection treated (5) Obesity Current Visit: Yes Status: Chronic Assessment and plan: chronic Qualifiers: Obesity type: due to excess calories Obesity severity: morbid Qualified Code(s): E66.01 - Morbid (severe) obesity due to excess calories (6) BPH (benign prostatic hyperplasia) Current Visit: Yes Status: Acute Assessment and plan: chronic and symptomatic Qualifiers: Prostatic enlargement morphology: unspecified morphology Lower urinary tract symptom presence: presence of symptoms unspecified Qualified Code(s): N40.0 - Benign prostatic hyperplasia without lower urinary tract symptoms - Subjective Interval history: Patient with history of morbid obesity, hypertension, diabetes, atrial fibrillation underwent ablation about 3 weeks ago now in sinus rhythm patient was admitted due to difficulty voiding and dysuria found to have UTI and sepsis . white count was at 21,000 with tachycardia he is on IV Rocephin Today denies any fevers or chills consult urology for urinary retention also beeing a male with complicated UTI . apparently he has history of BPH today patient feels much better appreciates DR Gunderson evaluation encouraged patient to go through with surgery - Constitutional Vitals: Temp Pulse Resp BP Pulse Ox 98.5 F 64 20 134/85 95 08/06/16 11:40 08/06/16 11:40 08/06/16 11:40 08/06/16 11:40 08/06/16 11:40 - Head Head exam: Present: atraumatic, normocephalic - Eye Eye exam: Present: PERRL, conjuntiva pink, sclera anicteric Pupils: Present: PERRL - Neck Neck exam general surgery: Present: supple, trachea midline. Absent: lymphadenopathy - Respiratory Respiratory exam: Present: CTAB. Absent: accessory muscle use, rales, rhonchi, wheezes - Cardiovascular Cardiovascular exam: Present: RRR, +S1, +S2. Absent: diastolic murmur, gallop, rubs, systolic murmur - GI/Abdominal GI/Abdominal exam: Present: normal bowel sounds, soft, no peritoneal signs. Absent: distended, tenderness - Extremities Exam Extremities exam: Present: warm, radial pulses palpable and symetrical. Absent : calf tenderness, cyanotic, pedal edema Internal Medicine: Result - Labs CBC & Chem 7: 08/06/16 02:36 08/06/16 02:36 Labs: Short CBC 08/06/16 Range/Units 02:36 WBC 15.8 H (4.3-11.1) K/mcL Hgb 11.7 L (12.9-16.9) g/dL Hct 35.5 L (37.5-50.1) % Plt Count 252 (140-400) K/mcL BMP 08/06/16 02:36 Sodium 136 Potassium 3.6 Chloride 100 Carbon Dioxide 27 BUN 12 Creatinine 0.85 Glucose 147 H Calcium 8.5 L Consult Discharge Plan - Plan Referrals: Daniel Mahoney DO [Primary Care Provider] -
[2016-08-06] MEDS: Finasteride 5 MG TABLET PO SCH (17:10)
[2016-08-07 04:42] LABS: Hematocrit 35.6 % (37.5-50.1); Hemoglobin 11.9 g/dL (12.9-16.9); Mean Corpuscular HGB Conc 33.4 g/dL (31.6-35.5); Mean Corpuscular Hemoglobin 27.5 pg (28.0-33.3); Mean Corpuscular Volume 82.4 fL (83.0-100.0); Mean Platelet Volume 9.2 fL (9.4-12.4); Platelet Count 288 K/mcL (140-400); Red Blood Count 4.32 M/mcL (4.19-5.50); Red Cell Distribution Width 14.3 % (11.5-14.5)
[2016-08-07 04:54] LABS: BUN/Creatinine Ratio 16 (6-26); Blood Urea Nitrogen 13 mg/dL (8-26); Calcium 8.8 mg/dL (8.6-10.8); Carbon Dioxide 27 mEq/L (19-29); Chloride 101 mEq/L (98-109); Glucose 132 mg/dL (70-99); Osmolality,Calculated 286 (280-300); Potassium 3.6 mEq/L (3.5-4.5); Sodium 137 mEq/L (136-145); eGFR For African Americans > 60 (> 60); eGFR For Non-African Americans > 60 (> 60)
[2016-08-07] MEDS: 0.9 % Sodium Chloride 1,000 ML IVC SCH (05:39)
[2016-08-07 07:44] VITALS: BP 146/82
[2016-08-07] MEDS: Insulin LISPRO 300 UNITS/3 ML VIAL SQ SCH (08:38)
[2016-08-07] MEDS: APIXABAN 5 MG TABLET PO SCH (08:40)
[2016-08-07] MEDS: amLODIPine 5 MG TABLET PO SCH (08:40)
[2016-08-07] MEDS: hydroCHLOROthiazide 25 MG TABLET PO SCH (08:40)
--- NOTE | 2016-08-07 11:42 | Discharge Summary ---
<Jessee Diaz - Last Filed: 08/07/16 16:10> Date of Encounter: 08/07/16 Time of Encounter: 11:38 - Discharge Diagnosis (1) Urinary tract infection Priority: Primary Status: Acute Qualifiers: Urinary tract infection type: acute cystitis Hematuria presence: without hematuria Qualified Code(s): N30.00 - Acute cystitis without hematuria (2) Acute retention of urine Priority: Primary Status: Acute (3) Prostatic hypertrophy Priority: Primary Status: Chronic (4) Kidney stones Priority: Secondary Status: Acute (5) Obesity Priority: Secondary Status: Chronic Qualifiers: Obesity type: due to excess calories Obesity severity: morbid Qualified Code(s): E66.01 - Morbid (severe) obesity due to excess calories (6) Hypertension Priority: Primary Status: Acute Qualifiers: Qualified Code(s): I10 - Essential (primary) hypertension - Discharge Medications Prescriptions: Cefdinir [Omnicef] 300 mg PO BID 8 Days Home Medications: Alpha Lipoic Acid 300 mg PO DAILY 08/04/16 [History] Amlodipine [Norvasc] 5 mg PO DAILY 08/04/16 [History] Apixaban [Eliquis] 5 mg PO BID 08/04/16 [History] Ascorbate Calcium [Vitamin C] 500 mg PO DAILY 08/04/16 [History] Cinnamon Bark [Cinnamon] 2,000 mg PO BID 08/04/16 [History] Finasteride [Proscar] 5 mg PO QPM 08/04/16 [History] Fluticasone Propionate Nasal [Flonase] 50 mcg NS 08/04/16 [History] Ginkgo Biloba 120 mg PO DAILY 08/04/16 [History] Hydrochlorothiazide 25 mg PO DAILY 08/04/16 [History] L. Acidophilus/Pectin, [place] [Acidophilus Probiotic Capsule] 1 each PO QAM [History] Loratadine [Claritin] 10 mg PO QAM 08/04/16 [History] Losartan Potassium [Cozaar] 100 mg PO DAILY 08/04/16 [History] Metformin HCl [Glucophage] 1,000 mg PO BID 08/04/16 [History] Metoprolol [Lopressor] 25 mg PO BID 08/04/16 [History] Montelukast [Singulair] 10 mg PO 08/04/16 [History] [place]-3/Dha/Epa/Fish Oil [Fish Oil 1,000 mg Softgel] 1,000 mg PO BID 08/04/16 [ History] SitaGLIPtin [Januvia] 100 mg PO DAILY 08/04/16 [History] Tamsulosin [Flomax] 0.4 mg PO QPM 08/04/16 [History] Ubidecarenone [Co Q-10] 100 mg PO DAILY 08/04/16 [History] Cefdinir [Omnicef] 300 mg PO BID 8 Days 08/07/16 [Rx] Allergies/Adverse Reactions: Allergies Banana Adverse Reaction (Verified 08/04/16 20:14) See Comments eyes and nose swell, itchy mouth. Date of admission: 08/04/16 21:15 Primary care physician: Daniel Mahoney DO Consults: 08/05/16 10:22 Consult to Urology [CONS] Routine Consulting Provider: Urology Christine Reason for Consult: urinary retension and complicated uti Time Notified: 10:22 Call Completed: No Discharging clinician: Jessee Diaz Anticipated date of discharge: 08/07/16 - Patient Status Disposition: Home, Self-Care Condition: Good Functional capacity at discharge: independent ambulation Overall status at discharge: patient is progressing back to baseline - Discharge Instructions Instructions: Urinary Tract Infection in Men (DC) Follow Up With: Daniel Mahoney DO [Primary Care Provider] - 08/10/16 2:40 pm Acosta Gunderson MD [Partnered Physician] - 08/17/16 10:30 am Forms: Work/School Release Additional Instructions: I recommend completing oral antibiotic course. Continue with Bianchi catheter until follow-up with urology Follow up with urology - Diet and Activity Activity: increase activity as tolerated Diet: advance to your usual diet Interval History: Mr. Travis is a 56 year old male HTN, DM, BPH and a-fib on eliquis who presented to [facility] on 08/04/2016 [facility] complaints of difficulty voiding and dysuria. He was found have a urinary tract infection, and sepsis criteria and urinary retention. He was admitted to general medical floor fully catheter was placed to started on antibiotic coverage for his urinary tract infection. On admission he was also treated for his chronic medical conditions. Urology was consult to given the patient's history of BPH and urinary retention. After evaluation they recommended the patient undergo bladder outlet surgery such as a TURP in the outpatient setting. Patient is continued on IV antibiotic coverage with Rocephin. He remains stable afebrile, leukocytosis resolved. He was seen and evaluated on 08/07/2016 deemed stable for discharge with close follow-up with urology. He was discharged with urinary catheter in place and a prescription for Omnicef for the remainder of the antibiotic course of [address] of the abdomen demonstrated urinary bladder decompression with Bianchi catheter with urinary bladder wall thickening suspected with mild perivesicular fat stranding. Moderate prostatomegaly, bilateral nonobstructing small renal calculi, diffuse fatty infiltrates of the liver. Hospital course: Mr. Travis is a 56 year old male - Time Spent with Patient Total time spent providing and/or coordinating discharge services: - Constitutional Vitals: Temp Pulse Resp BP Pulse Ox 98.3 F 64 16 146/82 96 08/07/16 07:44 08/07/16 07:44 08/07/16 07:44 08/07/16 07:44 08/07/16 08:00 General appearance: Present: A&O X 3, morbidly obese, pleasant, no acute distress - Head Head exam: Present: atraumatic, normocephalic - Eye Eye exam: Present: PERRL, conjuntiva pink, sclera anicteric Pupils: Present: PERRL - Neck Neck exam general surgery: Present: supple, trachea midline. Absent: lymphadenopathy - Respiratory Respiratory exam: Present: CTAB. Absent: accessory muscle use, rales, rhonchi, wheezes - Cardiovascular Cardiovascular exam: Present: RRR, +S1, +S2. Absent: diastolic murmur, gallop, rubs, systolic murmur - GI/Abdominal GI/Abdominal exam: Present: normal bowel sounds, soft, no peritoneal signs. Absent: distended, tenderness - Extremities Exam Extremities exam: Present: warm, radial pulses palpable and symetrical. Absent : calf tenderness, cyanotic, pedal edema - Neurological Exam Neurological exam: Present: CN II-XII intact, oriented X3, no focal deficits. Absent: pronater drift, facial droop, speech deficit - Skin Skin exam: Present: dry, intact <Teja Mendez - Last Filed: 08/07/16 19:31> Date of Encounter: 08/07/16 Date of admission: 08/04/16 21:15 Primary care physician: Daniel Mahoney DO Consults: 08/05/16 10:22 Consult to Urology [CONS] Routine Consulting Provider: Peter King Reason for Consult: urinary retension and complicated uti Time Notified: 10:22 Call Completed: No Hospital course: Mr. Travis is a 56 year old male - Time Spent with Patient Total time spent providing and/or coordinating discharge services: - Constitutional Vitals: Temp Pulse Resp BP Pulse Ox 98.3 F 64 16 146/82 96 08/07/16 07:44 08/07/16 07:44 08/07/16 07:44 08/07/16 07:44 08/07/16 08:00 - Attending Attestation I examined this patient and my medical decision-making was reviewed with the Resident Physician, Dr Diaz. I agree with the documented findings, disposition and treatment plan as described except to the extent set forth below. Patient reports he treatment for UTI and sepsis. Currently he is in no acute distress awake alert oriented. Heart exam reveals regular S1 and S2 with no murmurs. Abdomen is soft nontender nondistended with normoactive bowel sounds extremities with no edema. Plan we will discharge the patient home to complete 7 more days of Omnicef. Follow-up with urology. Patient will be discharged with a Bianchi catheter.
== END 2016-08-07 13:24 | disposition home or self-care (01) | DRG 872 ==
LOC: EMEROO 15:40 → 3ANU 15:40
PROVIDERS: ADMIT Internal Medicine; ATTEND Internal Medicine

== ENCOUNTER 2018-08-20 07:06 | Inpatient (IN) ==
--- NOTE | 2018-08-20 07:10 | Emergency Department Note ---
Disposition Clinical Impression: Renal colic on left side, Diabetes mellitus, Abnormal kidney function study, Obstructive uropathy, Kidney stone on left side, Pyelonephritis, Obesity Disposition: Admitted As Inpatient Referrals: NONE,PCP [Primary Care Provider] - General Adult HPI - General Stated complaint: Kidney stone(Left) Time Seen by Provider: 08/20/18 07:10 - History of Present Illness HPI Narrative: 58-year-old male with a history of kidney stones reports to the emergency department complaining of left flank pain since Sunday. He also describes some bloody urine. He is not anticoagulated but does take aspirin. There is no history of trauma. No bowel or bladder dysfunction or weakness or numbness legs. The previous spinal surgery or spinal pathology. The patient describes intermittent left flank pain which radiates forward. There is no history of sciatica or saddle anesthesia. He is an established patient with Dr. Gunderson, he has had a TURP and multiple kidney stones in the past. There is no history of fever, no history of shortness of breath chest pain syncope rash or any other acute complaint or concern. - Related Data Home Medications Medication Instructions Recorded Confirmed Alpha Lipoic Acid 300 mg PO DAILY 08/04/16 10/09/16 Ascorbate Calcium [Vitamin C] 500 mg PO DAILY 08/04/16 10/09/16 Cinnamon Bark [Cinnamon] 2,000 mg PO BID 08/04/16 10/09/16 Finasteride [Proscar] 5 mg PO QPM 08/04/16 10/09/16 Fluticasone Propionate Nasal 50 mcg NS HS 08/04/16 10/09/16 [Flonase] Ginkgo Biloba 120 mg PO DAILY 08/04/16 10/09/16 L. Acidophilus/Pectin, [place] 1 each PO QAM 08/04/16 10/09/16 [Acidophilus Probiotic Capsule] Loratadine [Claritin] 10 mg PO QAM 08/04/16 10/09/16 Losartan Potassium [Cozaar] 100 mg PO DAILY 08/04/16 10/09/16 Metformin HCl [Glucophage] 1,000 mg PO BID 08/04/16 10/09/16 Montelukast [Singulair] 10 mg PO HS 08/04/16 10/09/16 [place]-3/Dha/Epa/Fish Oil [Fish Oil 1,000 mg PO BID 08/04/16 10/09/16 1,000 mg Softgel] SitaGLIPtin [Januvia] 100 mg PO DAILY 08/04/16 10/09/16 Tamsulosin [Flomax] 0.4 mg PO QPM 08/04/16 10/09/16 Ubidecarenone [Co Q-10] 100 mg PO DAILY 08/04/16 10/09/16 amLODIPine [Norvasc] 5 mg PO DAILY 08/04/16 10/09/16 hydroCHLOROthiazide 25 mg PO DAILY 08/04/16 10/09/16 [Hydrochlorothiazide] Previous Rx's Medication Instructions Recorded Docusate [Colace] 100 mg PO BID #60 capsule 10/10/16 HYDROcodone/Acet 5/325 mg [[place] 2 tab PO Q4HR PRN #25 tablet 10/10/16 5-325 mg] Allergies Allergy/AdvReac Type Severity Reaction Status Date / Time Banana AdvReac See Verified 10/09/16 08:57 Comments All systems ED: reviewed and negative except as stated. Past Medical History - Past Medical History Medical history: Reports: diabetes, hypertension, kidney stones, other Surgical history: Reports: appendectomy, herniorrhaphy, other Psychiatric history: Reports: no psych history - Social History Smoking Status: Never smoker Smokeless Tobacco Status: No Alcohol use: Reports: none Drug use: Reports: none Physical Exam - General Limitations: no limitations General appearance: alert, in no apparent distress - Head Head exam: atraumatic, normocephalic, normal inspection - Eye Eye exam: Present: normal appearance, PERRL, EOMI - ENT ENT exam: normal exam, normal oropharynx, mucous membranes moist, TM's normal bilaterally, normal external ear exam - Neck Neck exam: Present: normal inspection, full ROM, trachea midline - Chest Chest inspection: Present: symmetric chest wall rise. Absent: tenderness - Respiratory Respiratory exam: Present: normal lung sounds bilaterally. Absent: respiratory distress - Cardiovascular Cardiovascular exam: Present: regular rate, normal rhythm, normal heart sounds - Abdominal Exam Abdominal exam: Present: soft, Non-Tender, normal bowel sounds. Absent: tenderness, distention, guarding, rebound, rigidity - Extremities Exam Extremities exam: Present: normal inspection, full ROM, normal capillary refill. Absent: tenderness, pedal edema - Back Exam Back exam: Present: normal inspection, full ROM, CVA tenderness (L), other (Straight leg raise negative bilaterally.). Absent: tenderness, CVA tenderness (R), vertebral tenderness - Neurological Exam Neurological exam: Present: alert, oriented X3, CN II-XII intact. Absent: motor sensory deficit - Psychiatric Psychiatric exam: Present: normal affect, normal mood - Skin Skin exam: Present: warm, dry, intact, normal color Course Vital Signs Temperature 98.1 F 08/20/18 07:24 Pulse Rate 85 08/20/18 07:24 Respiratory Rate 16 08/20/18 07:24 Blood Pressure 146/85 08/20/18 07:24 O2 Sat by Pulse Oximetry 96 08/20/18 07:24 Temperature 98.1 F 08/20/18 07:24 Pulse Rate 77 08/20/18 08:56 Respiratory Rate 16 08/20/18 08:56 Blood Pressure 134/86 08/20/18 08:56 O2 Sat by Pulse Oximetry 96 08/20/18 08:56 Oxygen Delivery Oxygen Delivery Room Air Medical Decision Making - MDM Narrative Medical decision making narrative: The patient states that he has had flank pain since Sunday, CT identifies an obstructive stone about 5 mm, he also has perinephric stranding. The patient's white count is elevated, his CRP is elevated at 229, urinalysis shows changes suggestive of infection. IV access was established IV fluid was given, Rocephin and ordered. The patient is known to be diabetic, he has an apparent element of renal insufficiency which appears to be new, based on multiple abnormal findings and what appears to be obstructive uropathy with possible secondary pyelonephritis in a diabetic male, I thought it would be appropriate to admit the patient to the hospital. I discussed case with Dr. Gunderson, urologist who will act as actuarial consultant. The patient is not tachycardic to A febrile and does not necessarily meet Sirs/sepsis criteria. Blood cultures ordered, lactic acid ordered and pending. I spoke with the hospitalist on-call who has accepted the patient to their care. The patient is agreeable to admission. - Lab Data Lab results reviewed: Yes I reviewed the patient's lab results. Result diagrams: 08/20/18 08:01 08/20/18 08:01 Lab Results 05/14/19 05/14/19 05/14/19 Range/Units 07:25 08:01 08:01 WBC 14.7 H (4.3-11.1) K/mcL RBC 4.73 (4.19-5.50) M/mcL Hgb 13.1 (12.9-16.9) g/dL Hct 39.5 (37.5-50.1) % MCV 83.5 (83.0-100.0) fL MCH 27.7 L (28.0-33.3) pg MCHC 33.2 (31.6-35.5) g/dL RDW 14.5 (11.5-14.5) % Plt Count 290 (140-400) K/mcL MPV 8.7 L (9.4-12.4) fL Immature Gran % 0.5 (0-4) % Seg Neutrophils % 80.5 % Lymphocytes % 6.7 % Monocytes % 10.1 % Eosinophils % 1.7 % Basophils % 0.5 % Neutrophils # 11.8 H (1.6-8.9) K/mcL Lymphocytes # 1.0 (0.6-4.6) K/mcL Monocytes # 1.5 H (0.0-1.3) K/mcL Eosinophils # 0.3 (0.0-0.6) K/mcL Basophils # 0.1 (0.0-0.2) K/mcL Sodium 136 (136-145) mEq/L Potassium 3.6 (3.5-5.1) mEq/L Chloride 95 L (98-107) mEq/L Carbon Dioxide 30 H (23-29) mEq/L BUN 22 H (6-20) mg/dL Creatinine 1.47 H (0.70-1.30) mg/dL Est GFR ( Amer) 59 L (> 60) Est GFR (Non-Af Amer) 49 L (> 60) BUN/Creatinine Ratio 15 (6-26) Glucose 168 H (70-105) mg/dL Calculated Osmolality 289 (280-300) Calcium 9.7 (8.6-10.3) mg/dL Total Bilirubin 0.6 (0.3-1.0) mg/dL AST 12 L (13-39) Units/L ALT 20 (7-52) Units/L Alkaline Phosphatase 66 (34-104) Units/L C-Reactive Protein 229 H (Less than 10) mg/L Serum Total Protein 7.7 (6.4-8.9) g/dL Albumin 4.1 (3.5-5.7) g/dL Globulin 3.6 H (2.4-3.5) g/dL Albumin/Globulin Ratio 1.1 (1.1-2.2) Urine Color Yellow (Yellow) Urine Clarity Clear (Clear) Urine pH 5.5 (5.0-8.0) pH Units Ur Specific [place] 1.024 (1.010-1.025) Urine Protein 100 H (Neg-Trace) mg/dL Urine Glucose (UA) Normal (Normal) mg/dL Urine Ketones Trace H (Negative) mg/dL Urine Blood Negative (Negative) Urine Nitrite Negative (Negative) Urine Bilirubin Negative (Negative) Urine Urobilinogen Normal (Normal) mg/dL Ur Leukocyte Esterase Moderate H (Negative) Urine Microscopic RBC 5-15 H (0-3) per hpf Urine Microscopic WBC 50-100 H (0-3) per hpf Ur Squamous Epith Cells Many H (None-Few) per lpf Ur Transition Epith Cell Few (None-Few) per hpf Urine Bacteria None Seen (None-Few) per hpf Hyaline Casts None Seen (None-Few) per lpf Urine Mucus Few (Few) - Radiology Data Radiology results reviewed: Yes I reviewed the patient's radiology results.
[2018-08-20] MEDS ORDERED: *HR* OxyCODONE/APAP 5/325 TABLET PO ONE ×2 (07:20→10:31)
[2018-08-20] MEDS ORDERED: Ondansetron ODT 4 MG TAB.RAPDIS SL ONE (07:21)
[2018-08-20 07:46] LABS: Bilirubin,Urine Negative (Negative); Blood,Urine Negative (Negative); Clarity,Urine Clear (Clear); Color,Urine Yellow (Yellow); Glucose,Urine (UA) Normal (Normal); Ketones,Urine Trace mg/dL (Negative); Leukocyte Esterase,Urine Moderate (Negative); Nitrite,Urine Negative (Negative); PH,Urine 5.5 pH Units (5.0-8.0); Protein,Urine 100 mg/dL (Neg-Trace); Specific Gravity,Urine 1.024 (1.010-1.025); Urobilinogen,Urine Normal (Normal)
[2018-08-20 07:47] LABS: Bacteria,Urine None Seen per hpf (None-Few); Hyaline Casts,Urine None Seen per lpf (None-Few); Squamous Epithelial Cell,Urine Many per lpf (None-Few); WBC,Urine 50-100 per hpf (0-3)
[2018-08-20 07:59] LABS: Mucus,Urine Few (Few)
[2018-08-20 08:00] LABS: Transitional Epi Cells,Urine Few per hpf (None-Few)
[2018-08-20 08:14] LABS: Basophils # 0.1 K/mcL (0.0-0.2); Basophils % 0.5 %; Eosinophils # 0.3 K/mcL (0.0-0.6); Eosinophils % 1.7 %; Hematocrit 39.5 % (37.5-50.1); Hemoglobin 13.1 g/dL (12.9-16.9); Immature Granulocytes % 0.5 % (0-4); Lymphocytes % 6.7 %; Mean Corpuscular HGB Conc 33.2 g/dL (31.6-35.5); Mean Corpuscular Hemoglobin 27.7 pg (28.0-33.3); Mean Corpuscular Volume 83.5 fL (83.0-100.0); Mean Platelet Volume 8.7 fL (9.4-12.4); Monocytes # 1.5 K/mcL (0.0-1.3); Monocytes % 10.1 %; Neutrophils # 11.8 K/mcL (1.6-8.9); Platelet Count 290 K/mcL (140-400); Red Blood Count 4.73 M/mcL (4.19-5.50); Red Cell Distribution Width 14.5 % (11.5-14.5); Segmented Neutrophils % 80.5 %
[2018-08-20 08:33] LABS: Albumin 4.1 g/dL (3.5-5.7); Albumin/Globulin Ratio 1.1 (1.1-2.2); Bilirubin,Total 0.6 mg/dL (0.3-1.0); Calcium 9.7 mg/dL (8.6-10.3); Globulin 3.6 g/dL (2.4-3.5); Potassium 3.6 mEq/L (3.5-5.1); Total Protein 7.7 g/dL (6.4-8.9)
[2018-08-20] MEDS ORDERED: 0.9 % Sodium Chloride 1,000 ML IVC ONE (09:35)
[2018-08-20] MEDS ORDERED: cefTRIAXone 1,000 MG in Water for inj. (sterile) 20 ML 10 ML IVP ONE ×2 (09:35→11:22)
--- NOTE | 2018-08-20 10:59 | Internal Med History&Physical ---
<Mehran Garcia - Last Filed: 08/20/18 11:36> Date of Encounter: 08/20/18 Time of Encounter: 10:58 Internal Medicine - H&P: HPI Chief complaint: Left flank pain Admitted From: Emergency Dept Plans for Post Hospital Care: Home History of present illness: Mr. Travis is a 58 year old male with a past medical history of hypertension, diabetes mellitus type II, TURP, and previous nephrolithiasis who presented to the ED complaining of intermittent left-sided flank pain radiating to his groin for the past 3 days. Patient reports associated nausea, vomiting, chills, and hematuria 2 days ago and is currently on aspirin. His urologist is Dr. Gunderson He denies fever, chest pain, or recent trauma. In the ED, CT abdomen pelvis revealed distal left ureteral calculus measuring 5 mm causing mild hydronephrosis and perinephric stranding. Bilateral punctate urolithiasis. Left renal cyst. Labs revealed PATI and UA was positive for UTI. Patient was started on IV Rocephin and urology was consulted. Past Med Surg Social Fam HX - Past Medical History Medical history: diabetes, hypertension, kidney stones, other Additional medical history: Irregular Heart rhythm. Enlarge prostate Psychiatric history: no psych history - Past Surgical History Surgical History: appendectomy, herniorrhaphy, other Additional surgical history: kidney stone removal. Cardiac ablation 07/14/2016. left wrist surgery, turp - Social History Smoking Status: Never smoker Smokeless Tobacco Status: No Alcohol use: none Drug use: none - Family History Mother Living Status: Still Living Hx Family Cardiac Disorders: Yes (Afib, mitral valve prolapse) Hx Family Respiratory Disorders: Yes (COPD, Emphysema) Hx Family Cancer: Yes (Breast Cancer) Hx Family GI Disorders: No Hx Family Endocrine Disorder: Yes (DM) Hx Family Neuromuscular Disorders: No Hx Family Neurologic Disorders: No Hx Family HEENT Disorders: No Hx Family Autoimmune Disorders: No Sister Living Status: Internal Medicine - H&P: Meds Alpha Lipoic Acid 300 mg PO DAILY 08/04/16 [History] Ascorbate Calcium [Vitamin C] 500 mg PO DAILY 08/04/16 [History] Cinnamon Bark [Cinnamon] 2,000 mg PO BID 08/04/16 [History] Ginkgo Biloba 120 mg PO DAILY 08/04/16 [History] L. Acidophilus/Pectin, [place] [Acidophilus Probiotic Capsule] 1 each PO QAM 08/04/16 [History] Loratadine [Claritin] 10 mg PO QAM 08/04/16 [History] Losartan Potassium [Cozaar] 100 mg PO DAILY 08/04/16 [History] Metformin HCl [Glucophage] 1,000 mg PO BID 08/04/16 [History] [place]-3/Dha/Epa/Fish Oil [Fish Oil 1,000 mg Softgel] 1,000 mg PO BID 08/04/16 [H istory] SitaGLIPtin [Januvia] 100 mg PO DAILY 08/04/16 [History] Ubidecarenone [Co Q-10] 100 mg PO DAILY 08/04/16 [History] hydroCHLOROthiazide [Hydrochlorothiazide] 25 mg PO DAILY 08/04/16 [History] Allopurinol [Zyloprim 100 MG] 100 mg PO DAILY 08/20/18 [History] Amlodipine Besylate 10 mg PO DAILY 08/20/18 [History] Pravastatin Sodium 10 mg PO DAILY 08/20/18 [History] glipiZIDE [Glipizide ER] 10 mg PO DAILY 08/20/18 [History] Allergy/AdvReac Type Severity Reaction Status Date / Time Banana AdvReac See Verified 10/09/16 08:57 Comments All Systems PM: A 10-system review of systems was performed and is negative for pertinent findings except as documented above in the HPI. - Constitutional Constitutional: chills, no fever(s) - EENT Eyes: no blurry vision, no diplopia Nose, mouth and throat: no sinus pain, no sore throat - Cardiovascular Cardiovascular ROS IM: no chest pain, no dyspnea, no palpitations - Respiratory Respiratory: no cough, no dyspnea, no chest congestion - Gastrointestinal Gastrointestinal: abdominal pain, nausea, vomiting - Genitourinary Genitourinary ROS male: flank pain, hematuria - Musculoskeletal Musculoskeletal ROS IM: back pain, no arthralgias - Integumentary Integumentary IM: no erythema, no rash - Neurological Neurological ROS: no numbness, no tingling, no weakness - Psychiatric Psychiatric: no anxiety, no confusion, no depression - Endocrine Endocrine IM: no polydipsia, no polyphagia, no polyuria - Hematologic/Lymphatic Hematologic/Lymphatic: no easy bleeding, no easy bruising - Constitutional Vitals: Temp Pulse Resp BP Pulse Ox 98.1 F 73 14 136/83 95 08/20/18 07:24 08/20/18 10:04 08/20/18 10:04 08/20/18 10:04 08/20/18 10:04 General appearance: Present: cooperative, A&O X 3, morbidly obese, pleasant, no acute distress, answers questions appropriately Exam: awake - Head Head exam: Present: atraumatic, normocephalic - Eye Eye exam: Present: EOMI, conjuntiva pink, sclera anicteric - ENT ENT exam: Present: mucous membranes dry, normal oropharynx - Neck Neck exam general surgery: Present: supple, trachea midline. Absent: lymphadenopathy - Respiratory Respiratory exam: Present: CTAB. Absent: accessory muscle use, rales, rhonchi, wheezes - Cardiovascular Cardiovascular exam: Present: RRR, +S1, +S2. Absent: diastolic murmur, gallop, rubs, systolic murmur - GI/Abdominal GI/Abdominal exam: Present: normal bowel sounds, soft, tenderness (Left flank tenderness), no peritoneal signs. Absent: distended - Extremities Exam Extremities exam: Present: warm, radial pulses palpable and symmetrical. Absent: calf tenderness, cyanotic, pedal edema - Back Exam Back exam: Present: CVA tenderness (L), normal inspection - Neurological Exam Neurological exam: Present: CN II-XII intact, oriented X3, no focal deficits. Absent: facial droop, speech deficit - Psychiatric Psychiatric exam: Present: normal affect, normal mood - Skin Skin exam: Present: dry, intact, normal color, warm Internal Med - H&P Results - Labs CBC & Chem 7: 08/20/18 08:01 08/20/18 08:01 Labs: Short CBC 08/20/18 Range/Units 08:01 WBC 14.7 H (4.3-11.1) K/mcL Hgb 13.1 (12.9-16.9) g/dL Hct 39.5 (37.5-50.1) % Plt Count 290 (140-400) K/mcL Neutrophils # 11.8 H (1.6-8.9) K/mcL BMP 08/20/18 08:01 Sodium 136 Potassium 3.6 Chloride 95 L Carbon Dioxide 30 H BUN 22 H Creatinine 1.47 H Glucose 168 H Calcium 9.7 Liver Function 08/20/18 Range/Units 08:01 Total Bilirubin 0.6 (0.3-1.0) mg/dL AST 12 L (13-39) Units/L ALT 20 (7-52) Units/L Alkaline Phosphatase 66 (34-104) Units/L Albumin 4.1 (3.5-5.7) g/dL Urine 08/20/18 Range/Units 07:25 Urine Color Yellow (Yellow) Urine Clarity Clear (Clear) Urine pH 5.5 (5.0-8.0) pH Units Ur Specific [place] 1.024 (1.010-1.025) Urine Protein 100 H (Neg-Trace) mg/dL Urine Glucose (UA) Normal (Normal) mg/dL - Pulse Oximetry Interpretation Digit-Finger O2 Sat by Pulse Oximetry: 95 (On ambient air) - Impressions ITS Impressions Abdomen/Pelvis CT 08/20/18 07:20 IMPRESSION: 1. Distal left ureteral calculus measuring 5 mm causing mild hydronephrosis and perinephric stranding. 2. Bilateral punctate urolithiasis. 3. Left renal cyst. 4. Hepatomegaly with steatosis. D/ / Garrett Zamudio MD / Garrett Zamudio MD Interpreting Provider: Garrett Zamudio MD - Assessment and Plan (1) Pyelonephritis Current Visit: Yes Status: Acute Assessment and plan: 58-year-old male presents with elevated WBC 14.[address] abdomen/ pelvis showing acute distal left ureteral calculus measuring 5 mm causing mild hydronephrosis and perinephric stranding. Bilateral punctate urolithiasis. Patient started on IV Rocephin 2 g daily Urine culture pending. Urology consulted. NPO, anticipate left ureteroscopic stone extraction with left ureteral stent placement procedure this afternoon. (2) Recurrent nephrolithiasis Current Visit: Yes Status: Acute Assessment and plan: Patient with recurrent left sided nephrolithiasis, status post previous lithotripsy Management per urology (3) Hypertension Current Visit: No Status: Chronic Assessment and plan: Hold hydrochlorothiazide and ARB secondary to PATI. Continue amlodipine. Continue monitoring. Qualifiers: Hypertension type: essential hypertension Qualified Code(s): I10 - Essential (primary) hypertension (4) Diabetes mellitus type 2 in obese Current Visit: Yes Status: Chronic Assessment and plan: Hemoglobin A1c 6.3 on 10/06/16, repeat level pending Continue Accu-Cheks. Start Diabetic diet once cleared by urology. (5) Hepatic steatosis Current Visit: No Status: Acute Assessment and plan: CT abdomen pelvis revealed hepatomegaly with steatosis. Outpatient management. (6) Morbid obesity with BMI of 45.0-49.9, adult Current Visit: Yes Status: Chronic Assessment and plan: Lifestyle modification. (7) DVT prophylaxis Current Visit: Yes Status: Acute Assessment and plan: EPCD's. (8) PATI (acute kidney injury) Current Visit: Yes Status: Acute Assessment and plan: Patient with PATI in the setting of pyelonephritis, nephrolithiasis, HCTZ, and ARB use. Hold HCTZ and ARB. Continue IV fluids Continue monitoring - Time Spent With Patient Total time spent is greater than 50% in coordination of care (as documented) at patient's floor/unit and/or counseling patient: <Sirena Tolentino - Last Filed: 08/20/18 12:12> Date of Encounter: 08/20/18 Internal Medicine - H&P: HPI History of present illness: Mr. Travis is a 58 year old male Past Med Surg Social Fam HX - Additional Family History Additional family history: Family history reviewed and non contributory All Systems PM: A 10-system review of systems was performed and is negative for pertinent findings except as documented above in the HPI. - Constitutional Vitals: Temp Pulse Resp BP Pulse Ox 98.1 F 73 14 126/85 95 08/20/18 07:24 08/20/18 10:04 08/20/18 11:28 08/20/18 11:28 08/20/18 10:04 Internal Med - H&P Results - Labs CBC & Chem 7: 08/20/18 08:01 08/20/18 08:01 Labs: Short CBC 08/20/18 Range/Units 08:01 WBC 14.7 H (4.3-11.1) K/mcL Hgb 13.1 (12.9-16.9) g/dL Hct 39.5 (37.5-50.1) % Plt Count 290 (140-400) K/mcL Neutrophils # 11.8 H (1.6-8.9) K/mcL BMP 08/20/18 08:01 Sodium 136 Potassium 3.6 Chloride 95 L Carbon Dioxide 30 H BUN 22 H Creatinine 1.47 H Glucose 168 H Calcium 9.7 Liver Function 08/20/18 Range/Units 08:01 Total Bilirubin 0.6 (0.3-1.0) mg/dL AST 12 L (13-39) Units/L ALT 20 (7-52) Units/L Alkaline Phosphatase 66 (34-104) Units/L Albumin 4.1 (3.5-5.7) g/dL Urine 08/20/18 Range/Units 07:25 Urine Color Yellow (Yellow) Urine Clarity Clear (Clear) Urine pH 5.5 (5.0-8.0) pH Units Ur Specific [place] 1.024 (1.010-1.025) Urine Protein 100 H (Neg-Trace) mg/dL Urine Glucose (UA) Normal (Normal) mg/dL - Impressions ITS Impressions Abdomen/Pelvis CT 08/20/18 07:20 IMPRESSION: 1. Distal left ureteral calculus measuring 5 mm causing mild hydronephrosis and perinephric stranding. 2. Bilateral punctate urolithiasis. 3. Left renal cyst. 4. Hepatomegaly with steatosis. D/ / Garrett Zamudio MD / Garrett Zamudio MD Interpreting Provider: Garrett Zamudio MD - Assessment and Plan (1) Hepatic steatosis Current Visit: No Status: Acute (2) DVT prophylaxis Current Visit: Yes Status: Acute (3) Hypertension Current Visit: No Status: Chronic Qualifiers: Hypertension type: essential hypertension Qualified Code(s): I10 - Essential (primary) hypertension (4) Pyelonephritis Current Visit: Yes Status: Acute (5) Recurrent nephrolithiasis Current Visit: Yes Status: Acute (6) Diabetes mellitus type 2 in obese Current Visit: Yes Status: Chronic (7) Morbid obesity with BMI of 45.0-49.9, adult Current Visit: Yes Status: Chronic (8) PATI (acute kidney injury) Current Visit: Yes Status: Acute - Time Spent With Patient Total time spent is greater than 50% in coordination of care (as documented) at patient's floor/unit and/or counseling patient: - Attending Attestation I have seen and independently assessed this patient and I agree with plan as documented
--- NOTE | 2018-08-20 11:09 | Urology - Consult Note ---
Date of Encounter: 08/20/18 Time of Encounter: 11:07 - Assessment and Plan (1) Ureteral stone with hydronephrosis Current Visit: Yes Status: Acute Assessment and plan: Patient is a 58-year-old male who presents with a left distal ureteral stone and hydronephrosis. Signs are currently stable and afebrile. White blood cell coun t is elevated to 14.7. Urine culture has been collected. Serum creatinine is elevated at 1.47. We discussed surgical risks and benefits, and patient verbalized understanding. Patient signed consent, and he is prepared undergo a left ureteroscopic stone extraction with left ureteral stent placement later today with Dr. Gunderson. Patient will remain nothing by mouth. Urology CN:HPI Consult date: 08/20/18 Reason for consult Urology: Other (left ureteral stone) Requesting physician: Omar Mosley History of present illness: Patient is a 58-year-old male who presents with a 5 mm left distal ureteral stone and mild hydronephrosis. Patient reports a three-day history of left flank pain, chills, nausea, vomiting and gross hematuria. Patient presented to the emergency department where he underwent a CT of the abdomen and pelvis revealing a 5 mm distal left ureteral stone and mild hydronephrosis. Patient also was found to have punctate bilateral nephrolithiasis. Patient has a long- standing history of renal stones with his last stone being passed by medical expulsion approximately 3 months ago at home. Patient has undergone ureteroscopy in the past for stone removal. Patient denies any known family history of renal stones. Patient denies any dysuria, fever, hesitancy or incontinence. Past Med Surg Social Fam HX - Past Medical History Medical history: diabetes, hypertension, kidney stones, other Additional medical history: Irregular Heart rhythm. Enlarge prostate Psychiatric history: no psych history - Past Surgical History Surgical History: appendectomy, herniorrhaphy, other Additional surgical history: kidney stone removal. Cardiac ablation 07/14/2016. left wrist surgery, turp - Social History Smoking Status: Never smoker Smokeless Tobacco Status: No Alcohol use: none Drug use: none - Family History Sister Living Status: Mother Living Status: Still Living Hx Family Cardiac Disorders: Yes (Afib, mitral valve prolapse) Hx Family Respiratory Disorders: Yes (COPD, Emphysema) Hx Family Cancer: Yes (Breast Cancer) Hx Family GI Disorders: No Hx Family Endocrine Disorder: Yes (DM) Hx Family Neuromuscular Disorders: No Hx Family Neurologic Disorders: No Hx Family HEENT Disorders: No Hx Family Autoimmune Disorders: No Medications and Allergies Alpha Lipoic Acid 300 mg PO DAILY 08/04/16 [History] Ascorbate Calcium [Vitamin C] 500 mg PO DAILY 08/04/16 [History] Cinnamon Bark [Cinnamon] 2,000 mg PO BID 08/04/16 [History] Ginkgo Biloba 120 mg PO DAILY 08/04/16 [History] L. Acidophilus/Pectin, [place] [Acidophilus Probiotic Capsule] 1 each PO QAM 08/04/16 [History] Loratadine [Claritin] 10 mg PO QAM 08/04/16 [History] Losartan Potassium [Cozaar] 100 mg PO DAILY 08/04/16 [History] Metformin HCl [Glucophage] 1,000 mg PO BID 08/04/16 [History] [place]-3/Dha/Epa/Fish Oil [Fish Oil 1,000 mg Softgel] 1,000 mg PO BID 08/04/16 [History] SitaGLIPtin [Januvia] 100 mg PO DAILY 08/04/16 [History] Ubidecarenone [Co Q-10] 100 mg PO DAILY 08/04/16 [History] hydroCHLOROthiazide [Hydrochlorothiazide] 25 mg PO DAILY 08/04/16 [History] Allopurinol [Zyloprim 100 MG] 100 mg PO DAILY 08/20/18 [History] Amlodipine Besylate 10 mg PO DAILY 08/20/18 [History] Pravastatin Sodium 10 mg PO DAILY 08/20/18 [History] glipiZIDE [Glipizide ER] 10 mg PO DAILY 08/20/18 [History] 3 Allergy/AdvReac Type Severity Reaction Status Date / Time Banana AdvReac See Verified 10/09/16 08:57 Comments Review of Systems - Constitutional chills, fatigue, no fever(s) - EENT Nose, mouth and throat: no dizziness, no headache(s) - Cardiovascular no chest pain, no diaphoresis, no dyspnea - Respiratory no cough, no dyspnea - Gastrointestinal abdominal pain, nausea, vomiting - Genitourinary flank pain, hematuria, no change in urinary stream, no dysuria, no urinary frequency, no urinary hesitancy, no urinary incontinence, no urinary urgency - Musculoskeletal back pain, no muscle weakness - Integumentary no erythema, no rash - Neurological no confusion, no syncope - Psychiatric no anxiety, no confusion - Hematologic/Lymphatic no easy bleeding, no easy bruising - Allergic/Immunologic no throat swelling, no wheezing Exam Initial Vital Signs Temp Pulse Resp BP Pulse Ox 98.1 F 85 16 146/85 96 08/20/18 07:24 08/20/18 07:24 08/20/18 07:24 08/20/18 07:24 08/20/18 07:24 - General physical appearance Present: well developed, no distress, no pain, obese - Eyes Present: PERRL, normal ocular movement - ENT Present: normal nares, no hearing loss, no congestion - Neck Present: no masses, trachea midline, no lymphadenopathy - Respiratory Present: normal respiratory effort - Cardiovascular Cardiovascular exam IM: RRR - Abdomen Abdomen: Present: soft, non tender - Genitourinary other (no CVAT) - Integumentary Present: no rash, no abnormal pigmentation - Neurologic Present: normal coordination - Musculoskeletal Present: other (normal posture ) Urology Results - Labs 08/20/18 08:01 08/20/18 08:01 Abnormal lab results WBC 14.7 K/mcL (4.3-11.1) H 08/20/18 08:01 MCH 27.7 pg (28.0-33.3) L 08/20/18 08:01 MPV 8.7 fL (9.4-12.4) L 08/20/18 08:01 11.8 K/mcL (1.6-8.9) H 08/20/18 08:01 1.5 K/mcL (0.0-1.3) H 08/20/18 08:01 Chloride 95 mEq/L (98-107) L 08/20/18 08:01 Carbon Dioxide 30 mEq/L (23-29) H 08/20/18 08:01 BUN 22 mg/dL (6-20) H 08/20/18 08:01 1.47 mg/dL (0.70-1.30) H 08/20/18 08:01 Est GFR ( Amer) 59 (> 60) L 08/20/18 08:01 Est GFR (Non-Af Amer) 49 (> 60) L 08/20/18 08:01 Glucose 168 mg/dL (70-105) H 08/20/18 08:01 AST 12 Units/L (13-39) L 08/20/18 08:01 229 mg/L (Less than 10) H 08/20/18 08:01 3.6 g/dL (2.4-3.5) H 08/20/18 08:01 100 mg/dL (Neg-Trace) H 08/20/18 07:25 Trace mg/dL (Negative) H 08/20/18 07:25 Ur Leukocyte Esterase Moderate (Negative) H 08/20/18 07:25 5-15 per hpf (0-3) H 08/20/18 07:25 50-100 per hpf (0-3) H 08/20/18 07:25 Ur Squamous Epith Cells Many per lpf (None-Few) H 08/20/18 07:25 Diabetes panel 08/20/18 Range/Units 08:01 Sodium 136 (136-145) mEq/L Potassium 3.6 (3.5-5.1) mEq/L Chloride 95 L (98-107) mEq/L Carbon Dioxide 30 H (23-29) mEq/L BUN 22 H (6-20) mg/dL Creatinine 1.47 H (0.70-1.30) mg/dL Glucose 168 H (70-105) mg/dL Calcium 9.7 (8.6-10.3) mg/dL AST 12 L (13-39) Units/L ALT 20 (7-52) Units/L Alkaline Phosphatase 66 (34-104) Units/L Albumin 4.1 (3.5-5.7) g/dL Calcium panel 08/20/18 Range/Units 08:01 Calcium 9.7 (8.6-10.3) mg/dL Albumin 4.1 (3.5-5.7) g/dL Pituitary panel 08/20/18 Range/Units 08:01 Sodium 136 (136-145) mEq/L Potassium 3.6 (3.5-5.1) mEq/L Chloride 95 L (98-107) mEq/L Carbon Dioxide 30 H (23-29) mEq/L BUN 22 H (6-20) mg/dL Creatinine 1.47 H (0.70-1.30) mg/dL Glucose 168 H (70-105) mg/dL Calcium 9.7 (8.6-10.3) mg/dL Adrenal panel 08/20/18 Range/Units 08:01 Sodium 136 (136-145) mEq/L Potassium 3.6 (3.5-5.1) mEq/L Chloride 95 L (98-107) mEq/L Carbon Dioxide 30 H (23-29) mEq/L BUN 22 H (6-20) mg/dL Creatinine 1.47 H (0.70-1.30) mg/dL Glucose 168 H (70-105) mg/dL Calcium 9.7 (8.6-10.3) mg/dL Total Bilirubin 0.6 (0.3-1.0) mg/dL AST 12 L (13-39) Units/L ALT 20 (7-52) Units/L Alkaline Phosphatase 66 (34-104) Units/L Albumin 4.1 (3.5-5.7) g/dL All other labs normal. - Imaging CT scan - abdomen: report reviewed, image reviewed CT scan - pelvis: report reviewed, image reviewed Consult Discharge Plan - Plan Referrals: NONE,PCP [Primary Care Provider] -
[2018-08-20] MEDS ORDERED: D5% in Water 1,000 ML IVC PRN ×2 (11:17→19:48)
[2018-08-20] MEDS ORDERED: Dextrose Gel 15 GM/37.5 ML TUBE PO PRN ×4 (11:17→19:48)
[2018-08-20] MEDS ORDERED: traMADol 50 MG TABLET PO PRN ×2 (11:17→19:48)
[2018-08-20] MEDS ORDERED: *HR* Dextrose 50 % in Water (Syg) 50 ML SYRINGE IVP PRN ×2 (11:17→19:48)
[2018-08-20] MEDS ORDERED: *HR* OxyCODONE/APAP 5/325 TABLET PO PRN ×2 (11:17→19:48)
[2018-08-20] MEDS ORDERED: Naloxone 0.4 MG/ML INJ IVP PRN ×2 (11:17→19:48)
[2018-08-20] MEDS ORDERED: Ondansetron 4 MG/2 ML VIAL IVP PRN ×2 (11:17→19:48)
[2018-08-20] MEDS ORDERED: Acetaminophen 325 MG TABLET PO PRN ×2 (11:17→19:48)
--- NOTE | 2018-08-20 11:42 | Anesthesia Evaluation PreOp ---
<MynorBabatunde A - Last Filed: 08/20/18 11:40> Date of Encounter: 08/20/18 - Past History Planned Operation: LEFT USE, STENT Cardiac History: HTN, Arrhythmia (AFIB, POST ABLATION) Other Medical History: Renal (LEFT OBSTRUCRIVE UROPATHY, PATI, PYELONEPHRITIS), Diabetes Type II, Other (MORBID OBESITY) Anesthesia History: No Prior Anesthetic Complications, Past Anesthesia Alcohol Use: none Drug use: none Medications and Allergies Alpha Lipoic Acid 300 mg PO DAILY 08/04/16 [History] Ascorbate Calcium [Vitamin C] 500 mg PO DAILY 08/04/16 [History] Cinnamon Bark [Cinnamon] 2,000 mg PO BID 08/04/16 [History] Ginkgo Biloba 120 mg PO DAILY 08/04/16 [History] L. Acidophilus/Pectin, [place] [Acidophilus Probiotic Capsule] 1 each PO QAM 08/04/16 [History] Loratadine [Claritin] 10 mg PO QAM 08/04/16 [History] Losartan Potassium [Cozaar] 100 mg PO DAILY 08/04/16 [History] Metformin HCl [Glucophage] 1,000 mg PO BID 08/04/16 [History] [place]-3/Dha/Epa/Fish Oil [Fish Oil 1,000 mg Softgel] 1,000 mg PO BID 08/04/16 [History] SitaGLIPtin [Januvia] 100 mg PO DAILY 08/04/16 [History] Ubidecarenone [Co Q-10] 100 mg PO DAILY 08/04/16 [History] hydroCHLOROthiazide [Hydrochlorothiazide] 25 mg PO DAILY 08/04/16 [History] Allopurinol [Zyloprim 100 MG] 100 mg PO DAILY 08/20/18 [History] Amlodipine Besylate 10 mg PO DAILY 08/20/18 [History] Pravastatin Sodium 10 mg PO DAILY 08/20/18 [History] glipiZIDE [Glipizide ER] 10 mg PO DAILY 08/20/18 [History] Allergy/AdvReac Type Severity Reaction Status Date / Time Banana AdvReac See Verified 10/09/16 08:57 Comments - Meds/Allergy Pre-op Review Medications Reviewed: Yes Allergies Reviewed: Yes Beta Blockers on Current Med List: No Anesthesia Results - Labs 08/20/18 08:01 08/20/18 08:01 Laboratory Tests 08/20/18 08:01 Est GFR (Non-Af Amer) 49 L Anesthesia Exam Vital Signs/O2 Sat/Glucose, Most Recent Temp Pulse Resp BP Pulse Ox 98.1 F 73 14 126/85 95 08/20/18 07:24 08/20/18 10:04 08/20/18 11:28 08/20/18 11:28 08/20/18 10:04 Weight: 157 KG - BMI 48 NPO (# of Hours): >MN - Cardiac Rhythm: Regular - Pulmonary Breath Sounds: bilateral Clear Anesthesia Assess/Plan ASA Score: 3 Anesthetic Plan: General Monitoring Plan: Standard Monitors Recovery Plan: PACU <Kandis Corbin - Last Filed: 08/20/18 18:05> Date of Encounter: 08/20/18 Time of Encounter: 18:00 - Past History Cardiac History: Arrhythmia, Other (s/p cardiac ablation =>NSR x 4-5 years) Pulmonary History: Denies Any Significant HX, TREVER Dx (+ CPAP [setting = 11]) [employer]ER History: Denies Any Significant HX Anesthesia History: Past Anesthesia (CTR /Hand surgery, umbilical hernia repair 2015, kidney stone , TURP) Anesthesia Results - Labs 08/20/18 08:01 08/20/18 08:01 Anesthesia Exam Vital Signs Temp Pulse Resp BP Pulse Ox 08/20/18 15:56 99.1 F 79 18 153/77 98 08/20/18 14:10 99.0 F 75 19 164/95 99 08/20/18 11:28 14 126/85 08/20/18 10:04 73 14 136/83 95 08/20/18 08:56 77 16 134/86 96 08/20/18 07:24 98.1 F 85 16 146/85 96 Intake and Output 08/20/18 08/20/18 08/20/18 07:59 15:59 23:59 Intake Total 1010 / 1010 Balance 1010 / 1010 Intake: IV Fluids 1010 / 1010 0.9 % Sodium Chloride 1,000 ML 1000 / 1000 @ 999 mls/hr IVC .Q1H1M ONE Rx# :[id number] Rocephin 1,000 MG In Water for inj. (sterile) 10 ML @ 600 mls/ hr IVP ONCE ONE Rx#:[id number] Oral 0 / 0 Other: Stool Characteristics Normal for Patient Weight 156.988 kg Blood Glucose* 127 Patient Weight 08/20/18 23:59 Weight 156.988 kg Height: 5'11" Weight: 346# BMI = 48 - HEENT Pupil (Motor): Pupils equal, EOMI Mallampati: III Teeth: Normal Oral Opening: Greater than 3 - [employer] LOC: Oriented [employer] Motor: Normal RUE, Normal LUE, Normal RLE, Normal LLE, Normal Face [employer] Sensory: Normal: RUE, LUE, RLE, LLE, Face - Cardiac Murmur: None - Pulmonary Breath Sounds: bilateral Clear Respiratory Effort: Symmetrical Anesthesia Assess/Plan ASA Score: 3 (MO/BMI = 48, HTN, Chol, DM) Anesthetic Plan: General Monitoring Plan: Standard Monitors Recovery Plan: PACU Anes Supervising Prov Stmt: PT seen/evaluated, R&B discussed, questions answered and consent obtained. Lindsay Bhatia MD
[2018-08-20] MEDS: 0.9 % Sodium Chloride 1,000 ML IVC SCH (12:35)
[2018-08-20 13:16] LABS: INR 1.2; Prothrombin Time 13.5 Seconds (9.4-12.1)
[2018-08-20 13:17] LABS: Magnesium 1.9 mg/dL (1.6-2.6)
[2018-08-20 13:29] LABS: Estimated Average Glucose 177 mg/dl; Hemoglobin A1C 7.8 %
[2018-08-20] MEDS ORDERED: Pregabalin 75 MG CAPSULE ONE (18:10)
[2018-08-20] MEDS ORDERED: Acetaminophen IV 1,000 MG/100 ML INFUS..BTL ONE (18:10)
[2018-08-20] MEDS ORDERED: *HR* Succinylcholine 200 MG/10 ML VIAL IVP ONE (18:45)
[2018-08-20] MEDS ORDERED: Lidocaine -MPF 4% 5 ML AMPUL ONE (18:45)
[2018-08-20] MEDS ORDERED: *HR* Rocuronium Bromide 50 MG/5 ML VIAL ONE (18:45)
[2018-08-20] MEDS ORDERED: *HR* Midazolam HCl 2 MG/2 ML VIAL ONE (18:45)
[2018-08-20] MEDS ORDERED: *HR* Propofol 200 MG/20 ML VIAL IVP ONE (18:45)
[2018-08-20] MEDS ORDERED: *HR* FentaNYL (PF) 100 MCG/2 ML VIAL ONE (18:45)
[2018-08-20] MEDS ORDERED: Lidocaine -MPF 2% 2 ML VIAL ONE (18:45)
[2018-08-20] MEDS ORDERED: Dexamethasone 4 MG/ML VIAL ONE (18:45)
[2018-08-20] MEDS ORDERED: Ondansetron 4 MG/2 ML VIAL ONE (18:45)
[2018-08-20] MEDS ORDERED: *HR* PHENYLEPHRINE 1,000 MCG/10 ML SYRINGE IVP ONE (18:57)
--- NOTE | 2018-08-20 19:08 | Operative Note ---
Date of procedure: 08/20/18 Pre-op diagnosis: Left ureteral stone Post-op diagnosis: same Procedure: Cystoscopy, left ureteroscopy, laser lithotripsy, basket stone extraction, and stent placement Implants: 4.8-Uzbek by 28 cm double-J stent Complications: None Anesthesia: GETA Surgeon: Acosta Gunderson Was there an cook's assistant present: No Estimated blood loss (cc): 1 Specimen: Left ureteral stone Condition: stable Disposition: PACU Procedure in Detail: Indications: Mr. Travis is a 58-year-old gentleman who has a history of left flank pain. A CT scan showed a stone in the distal left ureter. He elected to undergo a left ureteroscopy, laser lithotripsy, and stent placement. He is aware of the risks of the procedure including but not limited to bleeding, infection, injury to other structures, need for further procedures, stent irritation, and the risk of anesthesia. He is willing to proceed. Procedure: After informed consent was obtained the patient was brought back to the operating room and placed in supine position. A time out was performed. General anesthesia was administered and an endotracheal tube was placed. He was then placed in the lithotomy position. He was prepped and draped in the usual sterile fashion. Cystoscopy was performed. The anterior urethra was normal. There was no evidence of bladder tumors. The ureteral orifices were in the normal orthotopic position. The Zip wire was placed in the left ureteral orifice with the assistance of an open-ended catheter and brought into the kidney under fluoroscopic guidance. The ureter was gently dilated with the 8/10 Uzbek ureteral dilator. I then advanced the semirigid ureteroscope into the ureter. The stone was fragmented using the 365 micron laser fiber into small pieces. The stone fragments were basket extracted. A 4.8 [place] by 28cm JJ stent was then placed with good curl seen in the kidney and the bladder. The dangle string was removed. The bladder was drained. The patient was then awakened from general anesthesia and brought to recovery room in good condition. All sponge, needle, and instrument counts were correct.
[2018-08-20] MEDS ORDERED: 0.9 % Sodium Chloride 1,000 ML IVC SCH (19:48)
[2018-08-20] MEDS: amLODIPine 5 MG TABLET PO SCH (23:16)
[2018-08-21 05:08] LABS: Basophils % 0.2 %; Hematocrit 37.4 % (37.5-50.1); Hemoglobin 12.2 g/dL (12.9-16.9); Immature Granulocytes % 0.7 % (0-4); Lymphocytes # 0.6 K/mcL (0.6-4.6); Lymphocytes % 4.5 %; Mean Corpuscular HGB Conc 32.6 g/dL (31.6-35.5); Mean Corpuscular Hemoglobin 27.7 pg (28.0-33.3); Mean Platelet Volume 9.4 fL (9.4-12.4); Monocytes # 0.4 K/mcL (0.0-1.3); Monocytes % 3.3 %; Neutrophils # 11.2 K/mcL (1.6-8.9); Platelet Count 300 K/mcL (140-400); Red Cell Distribution Width 14.3 % (11.5-14.5); Segmented Neutrophils % 91.3 %
[2018-08-21 05:25] LABS: Alanine Aminotransferase 16 Units/L (7-52); Albumin 3.5 g/dL (3.5-5.7); Albumin/Globulin Ratio 0.9 (1.1-2.2); Alkaline Phosphatase 60 Units/L (34-104); Aspartate Amino Transferase 10 Units/L (13-39); BUN/Creatinine Ratio 21 (6-26); Bilirubin,Total 0.4 mg/dL (0.3-1.0); Blood Urea Nitrogen 27 mg/dL (6-20); Calcium 8.4 mg/dL (8.6-10.3); Carbon Dioxide 27 mEq/L (23-29); Chloride 98 mEq/L (98-107); Globulin 3.7 g/dL (2.4-3.5); Glucose 340 mg/dL (70-105); Osmolality,Calculated 297 (280-300); Sodium 134 mEq/L (136-145); Total Protein 7.2 g/dL (6.4-8.9); eGFR For Non-African Americans 56 (> 60)
[2018-08-21] MEDS: 0.9 % Sodium Chloride 1,000 ML IVC SCH (07:20)
[2018-08-21] MEDS ORDERED: Insulin LISPRO 300 UNITS/3 ML VIAL SQ SCH (07:30)
[2018-08-21] MEDS: amLODIPine 5 MG TABLET PO SCH (08:07)
[2018-08-21] MEDS ORDERED: cefTRIAXone 2,000 MG in Water for inj. (sterile) 20 ML 20 ML IVP SCH (09:00)
--- NOTE | 2018-08-21 10:11 | Urology Progress Note ---
Date of Encounter: 08/21/18 Time of Encounter: 09:25 - Assessment and Plan (1) Ureteral stone with hydronephrosis Current Visit: Yes Status: Acute Assessment and plan: Patient is a 58-year-old male who presents one day status post cystoscopy, left ureteroscopy, laser lithotripsy, basket stone extraction, and stent placement. Vital signs are stable and afebrile. Renal function improved. Discussed postoperative expectations with indwelling ureteral stent. Patient instructed to follow-up within 1 week for a cystoscopy and stent removal with Dr. Gunderson. Recommend 10 days of empiric oral antibiotics such as Omnicef due to infection risk. Progress Note Subjective: no new complaints, feels better Narrative: POD #1. Patient seen and examined sitting upright in bed in no apparent distress. Patient reports pain is well-controlled. Patient reports he is voiding without difficulty. Patient is tolerating normal diet without nausea or vomiting. Patient denies fever, chills, flank pain. Objective Initial Vital Signs Temp Pulse Resp BP Pulse Ox 98.1 F 85 16 146/85 96 08/20/18 07:24 08/20/18 07:24 08/20/18 07:24 08/20/18 07:24 08/20/18 07:24 - General physical appearance Present: no distress, no pain, obese - Respiratory Present: normal expansion, normal respiratory effort - Abdomen Present: soft, non tender - Genitourinary Urine Appearance: Present: Hematuria (Cloudy, tea-colored urine) - Integumentary Present: no rash, no abnormal pigmentation - Musculoskeletal Present: normal posture - Psychiatric Present: oriented to time, oriented to person, oriented to place, speech is nor mal, memory intact - Labs 08/21/18 03:28 08/21/18 03:28 Diabetes panel 08/20/18 08/21/18 Range/Units 08:01 03:28 Sodium 134 L (136-145) mEq/L Potassium 4.0 (3.5-5.1) mEq/L Chloride 98 (98-107) mEq/L Carbon Dioxide 27 (23-29) mEq/L BUN 27 H (6-20) mg/dL Creatinine 1.31 H (0.70-1.30) mg/dL Glucose 340 H (70-105) mg/dL Hemoglobin A1c 7.8 H ( - 5.6) % Calcium 8.4 L (8.6-10.3) mg/dL AST 10 L (13-39) Units/L ALT 16 (7-52) Units/L Alkaline Phosphatase 60 (34-104) Units/L Albumin 3.5 (3.5-5.7) g/dL Calcium panel 08/20/18 08/21/18 Range/Units 08:01 03:28 Calcium 8.4 L (8.6-10.3) mg/dL Phosphorus 3.0 (2.7-4.5) mg/dL Albumin 3.5 (3.5-5.7) g/dL Pituitary panel 08/21/18 Range/Units 03:28 Sodium 134 L (136-145) mEq/L Potassium 4.0 (3.5-5.1) mEq/L Chloride 98 (98-107) mEq/L Carbon Dioxide 27 (23-29) mEq/L BUN 27 H (6-20) mg/dL Creatinine 1.31 H (0.70-1.30) mg/dL Glucose 340 H (70-105) mg/dL Calcium 8.4 L (8.6-10.3) mg/dL Adrenal panel 08/21/18 Range/Units 03:28 Sodium 134 L (136-145) mEq/L Potassium 4.0 (3.5-5.1) mEq/L Chloride 98 (98-107) mEq/L Carbon Dioxide 27 (23-29) mEq/L BUN 27 H (6-20) mg/dL Creatinine 1.31 H (0.70-1.30) mg/dL Glucose 340 H (70-105) mg/dL Calcium 8.4 L (8.6-10.3) mg/dL Total Bilirubin 0.4 (0.3-1.0) mg/dL AST 10 L (13-39) Units/L ALT 16 (7-52) Units/L Alkaline Phosphatase 60 (34-104) Units/L Albumin 3.5 (3.5-5.7) g/dL Consult Discharge Plan - Plan Referrals: NONE,PCP [Primary Care Provider] -
--- NOTE | 2018-08-21 11:41 | Discharge Summary ---
- NOTES TO OUTPATIENT PROVIDER Notes to Outpatient Provider: Patient has to hold hydrochlorothiazide until follow-up renal function test. Given a prescription to finish 10 day course of Omnicef. Will need urology follow-up. Orders not resulted at time of discharge: Pending orders 08/20/18 10:27 Culture,Blood [BC] Stat 08/20/18 18:35 XR KUB [XR] Routine 08/20/18 19:07 Surgical Pathology [PTH] Routine Date of Encounter: 08/21/18 Time of Encounter: 11:38 - Discharge Diagnosis (1) Hepatic steatosis Priority: Secondary Status: Acute (2) DVT prophylaxis Priority: Secondary Status: Acute (3) Hypertension Priority: Secondary Status: Chronic Qualifiers: Hypertension type: essential hypertension Qualified Code(s): I10 - Essential (primary) hypertension (4) Recurrent nephrolithiasis Priority: Primary Status: Acute (5) Diabetes mellitus type 2 in obese Priority: Secondary Status: Chronic (6) Morbid obesity with BMI of 45.0-49.9, adult Priority: Secondary Status: Chronic (7) PATI (acute kidney injury) Priority: Primary Status: Acute (8) Ureteral stone with hydronephrosis Priority: Primary Status: Acute Hospital course: Mr. Travis is a 58 year old male with past medical history of diabetes, hypertension, nephrolithiasis, h/o of A. fib status post ablation, came with complaint of left-sided flank pain was found to have PATI and left ureteral calculus with mild hydronephrosis and perinephric stranding. Patient underwent cystoscopy, left ureteroscopy, laser lithotripsy, basket stone extraction and stent placement. Patient was kept on empiric antibiotics. After procedure patient renal function improved. Patient otherwise stable to be discharged as he also request to take care of his who is currently in hospital. Patient to finish 10 day course of Omnicef for which prescription was sent to pharmacy. Patient to follow-up with urology within a week to have stent removal and follow-up renal function. I asked to hold hydrochlorothiazide for now. Discharge discussed with: patient, nurse - Time Spent with Patient Total time spent providing and/or coordinating discharge services: Time spent: Greater than 30 minutes (38) - Discharge Medications Prescriptions: New Cefdinir [Omnicef] 300 mg PO BID 10 Days #20 capsule Continued Metformin HCl [Glucophage] 1,000 mg PO BID Loratadine [Claritin] 10 mg PO QAM SitaGLIPtin [Januvia] 100 mg PO DAILY Losartan Potassium [Cozaar] 100 mg PO DAILY hydroCHLOROthiazide [Hydrochlorothiazide] 25 mg PO DAILY Ubidecarenone [Co Q-10] 100 mg PO DAILY [place]-3/Dha/Epa/Fish Oil [Fish Oil 1,000 mg Softgel] 1,000 mg PO BID L. Acidophilus/Pectin, [place] [Acidophilus Probiotic Capsule] 1 each PO QAM Ginkgo Biloba 120 mg PO DAILY Cinnamon Bark [Cinnamon] 2,000 mg PO BID Ascorbate Calcium [Vitamin C] 500 mg PO DAILY Alpha Lipoic Acid 300 mg PO DAILY Allopurinol [Zyloprim 100 MG] 100 mg PO DAILY Amlodipine Besylate 10 mg PO DAILY glipiZIDE [Glipizide ER] 10 mg PO DAILY Pravastatin Sodium 10 mg PO DAILY Home Medications: Alpha Lipoic Acid 300 mg PO DAILY 08/04/16 [History] Ascorbate Calcium [Vitamin C] 500 mg PO DAILY 08/04/16 [History] Cinnamon Bark [Cinnamon] 2,000 mg PO BID 08/04/16 [History] Ginkgo Biloba 120 mg PO DAILY 08/04/16 [History] L. Acidophilus/Pectin, [place] [Acidophilus Probiotic Capsule] 1 each PO QAM 08/04/16 [History] Loratadine [Claritin] 10 mg PO QAM 08/04/16 [History] Losartan Potassium [Cozaar] 100 mg PO DAILY 08/04/16 [History] Metformin HCl [Glucophage] 1,000 mg PO BID 08/04/16 [History] [place]-3/Dha/Epa/Fish Oil [Fish Oil 1,000 mg Softgel] 1,000 mg PO BID 08/04/16 [History] SitaGLIPtin [Januvia] 100 mg PO DAILY 08/04/16 [History] Ubidecarenone [Co Q-10] 100 mg PO DAILY 08/04/16 [History] hydroCHLOROthiazide [Hydrochlorothiazide] 25 mg PO DAILY 08/04/16 [History] Allopurinol [Zyloprim 100 MG] 100 mg PO DAILY 08/20/18 [History] Amlodipine Besylate 10 mg PO DAILY 08/20/18 [History] Pravastatin Sodium 10 mg PO DAILY 08/20/18 [History] glipiZIDE [Glipizide ER] 10 mg PO DAILY 08/20/18 [History] Cefdinir [Omnicef] 300 mg PO BID 10 Days #20 capsule 08/21/18 [Rx] Allergies/Adverse Reactions: Allergy/AdvReac Type Severity Reaction Status Date / Time Banana AdvReac See Verified 08/21/18 09:52 Comments Date of admission: 08/20/18 10:58 Primary care physician: PCP NONE Consults: 08/20/18 09:58 Consult to Urology [CONS] Stat Consulting Provider: Urology Christine Reason for Consult: Obstructive uropathy/kidney stone with changes suggestive of infection Dr. Gunderson Time Notified: 09:58 Call Completed: Yes Discharging clinician: Rachel Tamez - Constitutional Vitals: Temp Pulse Resp BP Pulse Ox 97.5 F L 65 18 138/77 95 08/21/18 07:04 08/21/18 07:04 08/21/18 07:04 08/21/18 07:04 08/21/18 08:23 Exam: General: In no acute distress. morbidly obese Respiratory exam: CTAB. no accessory muscle use, rales, rhonchi, wheezes Cardiovascular exam: RRR, +S1, +S2. no murmur, gallop, rubs. GI/Abdominal exam: Non-tender, Non-distended, soft, no peritoneal signs. Extremities exam: no pedal edema, pulses palpable in b/l lower extremities. no calf tenderness Neurological exam: CN II-XII intact, AO X3, no focal deficits. Skin exam: No skin rash - Patient Status Disposition: Home, Self-Care - Discharge Instructions Instructions: Kidney Stones (DC), Percutaneous Nephrolithotomy (DC), Urinary Tract Infection in Men (DC) Follow Up With: Acosta Gunderson MD [Partnered Physician] - 08/27/18 9:45 am NONE,PCP [Primary Care Provider] - Forms: ED Satisfaction Letter, Work/School Release
[2018-08-21 12:05] VITALS: BP 131/66
== END 2018-08-21 12:23 | disposition home or self-care (01) | DRG 660 ==
LOC: EMEROOARM 07:06 → 2SOUTHHOLD 07:06 → SUATTDRO 10:58 → 2SOUTHHOLD 11:35
PROVIDERS: ADMIT Student in an Organized Health Care Education/Training Program; ATTEND Internal Medicine